=== PATIENT | female | born 1985 ===

== ENCOUNTER 2021-07-03 09:14 | Inpatient (IN) | payer OTHER ==
[2021-07-03] VITALS (29 sets, daily range): BP systolic 70–186; BP diastolic 34–140
[~2021-07-03] VITALS: Ht 152.4 cm; Wt 47.6 kg
[2021-07-03 09:59] LABS: BASE EXCESS ABG -20 mmol/L (-3-3); CORRECTED PCO2 ABG 52 mmHg; CORRECTED PH ABG 6.99; CORRECTED PO2 ABG 65 mmHg; HCO3 ABG 13 mmol/L (21-28); PO2 ABG 81 mmHg (85-108); SAT O2 ABG 91 % (92-99)
[2021-07-03] MEDS ORDERED: NOREPINEPHRINE VIAL 8 MG in IV DEXTROSE 5% 250 ML IV PRN (10:00)
[2021-07-03] MEDS ORDERED: PHENYLEPHRINE INJ 50 MG in IV NORMAL SALINE 250ML 250 ML IV PRN (10:00)
[2021-07-03] MEDS ORDERED: 0.9 % SODIUM CHLORIDE 10 ML DISP.SYRIN. IV PRN (10:00)
[2021-07-03] MEDS ORDERED: IV NORMAL SALINE 1000ML BAG 1,000 ML IV ONE (10:00)
[2021-07-03 10:02] LABS: PCO2 ABG 60 mmHg (35-46)
[2021-07-03 10:04] LABS: FIO2 ABG 100
[2021-07-03] MEDS ORDERED: SODIUM BICARB ADULT 8.4% 50 MEQ/50 ML DISP.SYRIN. IV ONE ×2 (11:00→12:30)
[2021-07-03 11:04] LABS: BASO % 0 % (0-3); EOS % 0 % (0-3); HEMATOCRIT 45.2 % (36.0-47.0); HEMOGLOBIN 15.1 g/dL (12.0-15.5); LYMPH % 5 % (24-48); MEAN CORPUSCULAR HEMOGLOBIN 31 pg (25-35); MEAN CORPUSCULAR HGB CONC 33 g/dL (31-37); MEAN CORPUSCULAR VOLUME 94 fL (79-100); MONO # 0.2 x10^3/uL (0.0-1.1); MONO % 1 % (0-9); NEUT # 20.3 x10^3/uL (1.8-7.7); NEUT % 94 % (31-73); PLATELET COUNT 355 x10^3/uL (140-400); RED BLOOD COUNT 4.81 x10^6/uL (3.50-5.40); RED CELL DISTRIBUTION WIDTH 12.6 % (11.5-14.5); WHITE BLOOD COUNT 21.6 x10^3/uL (4.0-11.0)
[2021-07-03] MEDS: IV NORMAL SALINE 1000ML BAG 1,000 ML IV SCH ×2 (11:15→13:15)
[2021-07-03 11:17] LABS: PROTHROMBIN TIME PATIENT 16.9 SEC (11.7-14.0)
[2021-07-03 11:36] LABS: ALBUMIN 2.5 g/dL (3.4-5.0); ALBUMIN/GLOBULIN RATIO 0.8 (1.0-1.7); CALCIUM 6.7 mg/dL (8.5-10.1); CREATININE 0.7 mg/dL (0.6-1.0); GFR 94.7; POTASSIUM 3.5 mmol/L (3.5-5.1); TOTAL BILIRUBIN 0.2 mg/dL (0.2-1.0); TOTAL PROTEIN 5.6 g/dL (6.4-8.2)
--- NOTE | 2021-07-03 11:42 | CONS ---
DATE OF CONSULTATION: 07/03/2021 PULMONARY CONSULTATION ATTENDING PHYSICIAN: Bean Luna MD REASON FOR CONSULTATION: Respiratory failure and anoxic brain injury. HISTORY OF PRESENT ILLNESS: The patient is a 35-year-old female who has history of depression and has suicidal attempt in the past. The patient was found hanging in the closet at 4:00 in the morning. The patient's son called dad after he noticed her in the closet. Last seen was around 2:00 a.m. and this incident was observed at 4:00 a.m. EMS was called. The patient had 3 rounds of CPR. She had return of spontaneous circulation. She was taken to [facility] Emergency Room where a CT head was performed, which revealed evidence of anoxic brain injury. She also underwent CT chest, which was reviewed by me. There is evidence of mucus plugging and atelectasis involving the lower lobe, especially the right lower lobe. Angiogram of the neck did not reveal any dissection or stenosis. Her arterial blood gases on arrival showed a pH of 6.9, pCO2 of 60, pO2 of 81 on 100% oxygen and bicarbonate of 13. The patient has fixed and dilated pupils. She barely had 1 or 2 breaths above the set ventilator rate. She does not have a gag reflex. Her and brother is at the bedside. PAST MEDICAL HISTORY: Significant for hypertension and prior history of suicidal attempt. PAST SURGICAL HISTORY: . ALLERGIES: None to any medications. MEDICATIONS: Reviewed as listed in the MRAD including bicarbonate. REVIEW OF SYSTEMS: Unable to obtain from the patient. PHYSICAL EXAMINATION: VITAL SIGNS: Reviewed. Pulse ox is 100%. She was hypothermic on arrival with a core temperature of 91. Now, she is 96. She is on warming blanket. LUNGS: Clear. CARDIOVASCULAR: With a regular rate. ABDOMEN: Soft, nontender. EXTREMITIES: With no pitting edema. LABORATORY DATA: Reviewed. ABG discussed in my history of present illness. White cell count 21.6, hemoglobin 15.1, platelets 355. IMPRESSION: 1. Acute respiratory failure secondary to hanging with hypoxic respiratory arrest leading to cardiac arrest. 2. Anoxic encephalopathy with highly suspected early brain . She does not have a gag reflex. She does not have a corneal reflex. Her pupils are fixed and dilated. She did had few breaths above the set ventilator rate. She needs to be rewarmed and re assess in 24 hrs for brain . 3. Abnormal CT brain consistent with anoxic brain injury. 4. Prior history of suicide. 5. Underlying depression. 6. Leukocytosis. 7. Abnormal CT chest with mucus plugging in the right lower lobe. 8. Metabolic acidosis. RECOMMENDATIONS: 1. Continue present assist control mode. Follow ABGs and make necessary adjustments. I have hyperventilated her and waiting for another followup ABGs. 2. We will continue to warm the patient and once she reaches a core temperature of 97 degrees Fahrenheit, we will do an apnea test in the next 24 hours if clinically shows signs of brain . 3. Follow Neurology recommendations. 4. Add empiric antibiotics. 5. Monitor white cell count. 6. Wean off Levophed. She has responded to IV fluids. We will give another liter of fluid. 7. Discussed with entire family at the bedside. Discussed with RN and RT. Chart reviewed, imaging studies reviewed. Total critical care time [address]: Kalyan TID: [id number] [facility]OSPITALAlvin
[2021-07-03 12:02] LABS: BASE EXCESS ABG -11 mmol/L (-3-3); HCO3 ABG 18 mmol/L (21-28); PCO2 ABG 50 mmHg (35-46); PO2 ABG 59 mmHg (85-108); SAT O2 ABG 88 % (92-99)
[2021-07-03] MEDS: cefTRIAXone IV Push 1 GM VIAL. IVP SCH (12:28)
[2021-07-03 12:40] LABS: % BANDS 21 % (0-9); % LYMPHS 5 % (24-48); % METAS 3 % (0-0); % MONOS 1 % (0-10); % SEGS 70 % (35-66)
[2021-07-03 12:41] LABS: PLT ESTIMATE ADEQUATE (ADEQUATE)
[2021-07-03 13:06] LABS: FIO2 ABG 100% AC 26 400 5
--- NOTE | 2021-07-03 13:13 | PDOC2 ---
NEUROLOGY CONSULT Date of Service DOS: DATE: 07/03/21 TIME: 13:07 Reason for Consult Reason for Consult: Post code Referring Physician Referring Physician: Dr. Gomez Source Source: Caregiver (), Chart review History of Present Illness History of Present Illness The patient is a 35-year-old right-handed female who presented to the [facility] emergency department early this morning. Her 5-year-old son found her hanging in the closet. There is a telephone card wrapped around her throat. No one knows how long she was there. ran in and got her down, started CPR, and called 911. Emergency medical services started ACLS because she was pulseless and apneic. She was intubated, given epinephrine. She had imaging of the head and cervical spine. I reviewed [facility] emergency department records from 07/01. Patient reported, ".. I was upset yesterday.. maybe drank too much.. I feeling a little off today... dizzy...My father is sick and he was sent back to the [facility]... and it has really upset me.. '" She denied suicidality then. Patient has had a previous suicide attempt. Past Medical History Psych: Depression Past Surgical History Past Surgical History: No pertinent history Family History Family History: No pertinent hx Social History Social History , works at [employer], 5 children, no alcohol or street drugs, occasionally chews tobacco Current Medications Current Medications Current Medications Norepinephrine Bitartrate 8 mg/ Dextrose 258 ml @ 8.727 mls/ hr CONT PRN IV PER PROTOCOL; Start 07/03/21 at 10:00 Phenylephrine HCl 50 mg/Sodium Chloride 255 ml @ 6.9 mls/hr CONT PRN IV PER PROTOCOL; Start 07/03/21 at 10:00 Sodium Chloride 1,000 ml @ 1,000 mls/hr 1X ONCE IV ; Start 07/03/21 at 10:00; Stop 07/03/21 at 10:59; Status DC Sodium Chloride (Normal Saline Flush) 3 ml QSHIFT PRN IV AFTER MEDS AND BLOOD DRAWS; Start 07/03/21 at 10:00 Sodium Bicarbonate (Sodium Bicarb Adult 8.4% Syr) 100 meq 1X ONCE IV Last administered on 07/03/21at 11:03; Start 07/03/21 at 11:00; Stop 07/03/21 at 11:01; Status DC Sodium Chloride 1,000 ml @ 500 mls/hr Q2H IV Last administered on 07/03/21at 11:15; Start 07/03/21 at 11:15 Ceftriaxone Sodium (Rocephin) 1 gm Q24H IVP Last administered on 07/03/21at 12:28; Start 07/03/21 at 12:00 Sodium Bicarbonate (Sodium Bicarb Adult 8.4% Syr) 100 meq 1X ONCE IV Last administered on 07/03/21at 12:27; Start 07/03/21 at 12:30; Stop 07/03/21 at 12:31; Status DC Allergies Allergies: Coded Allergies: banana (Verified Allergy, Intermediate, 07/03/21) ROS Review of System Negative for fever, chills, weight loss, shortness of breath, chest pain, indigestion, hematochezia, melena, and dysuria. Full 14-point review of systems is negative. Physical Exam Physical Examination General: Well-developed, well-nourished female in no acute distress HEENT:Fundoscopic exam unremarkable Neck: Supple without bruit, no meningismus Musculoskeletal: Stability:see neurologic. Gait exam:see neurologic. Tone:see neurologic.Strength:see neurologic. Neurological: Pupils nonreactive to bright light. Corneal reflex absent. Oculocephalic reflex absent (tested only if C-spineintegrity ensured). Oculovestibular reflex absent. No facial movement to noxious stimuli at supraorbital nerve, temporomandibular joint. Gag reflex absent. Cough reflex absent to tracheal suctioning. Absence of motor response to noxious stimuli in all four limbs (spinally mediated reflexes are permissible). Takes a few breaths off ventilator Vitals VITALS Vital Signs Date Time Temp Pulse Resp B/P (MAP) Pulse Ox O2 Delivery O2 Flow Rate FiO2 07/03/21 12:56 94.1 124 20 70/57 88 Ventilator 94.1 Labs Labs Laboratory Tests Test 07/03/21 09:52 07/03/21 10:30 O2 Saturation 91 % (92-99) Arterial Blood pH 6.95 (7.35-7.45) Arterial Blood pH (Temp corrected) 6.99 Arterial Blood pCO2 at Patient Temp 60 mmHg (35-46) Arterial Blood pCO2 (Temp correct) 52 mmHg Arterial Blood pO2 at Patient Temp 81 mmHg (85-108) Arterial Blood pO2 (Temp corrected) 65 mmHg Arterial Blood HCO3 13 mmol/L (21-28) Arterial Blood Base Excess -20 mmol/L (-3-3) FiO2 100 White Blood Count 21.6 x10^3/uL (4.0-11.0) Red Blood Count 4.81 x10^6/uL (3.50-5.40) Hemoglobin 15.1 g/dL (12.0-15.5) Hematocrit 45.2 % (36.0-47.0) Mean Corpuscular Volume 94 fL (79-100) Mean Corpuscular Hemoglobin 31 pg (25-35) Mean Corpuscular Hemoglobin Concent 33 g/dL (31-37) Red Cell Distribution Width 12.6 % (11.5-14.5) Platelet Count 355 x10^3/uL (140-400) Neutrophils (%) (Auto) 94 % (31-73) Lymphocytes (%) (Auto) 5 % (24-48) Monocytes (%) (Auto) 1 % (0-9) Eosinophils (%) (Auto) 0 % (0-3) Basophils (%) (Auto) 0 % (0-3) Neutrophils # (Auto) 20.3 x10^3/uL (1.8-7.7) Lymphocytes # (Auto) 1.0 x10^3/uL (1.0-4.8) Monocytes # (Auto) 0.2 x10^3/uL (0.0-1.1) Eosinophils # (Auto) 0.0 x10^3/uL (0.0-0.7) Basophils # (Auto) 0.0 x10^3/uL (0.0-0.2) Segmented Neutrophils % 70 % (35-66) Band Neutrophils % 21 % (0-9) Lymphocytes % 5 % (24-48) Monocytes % 1 % (0-10) Metamyelocytes % 3 % (0-0) Platelet Estimate Adequate (ADEQUATE) Prothrombin Time 16.9 SEC (11.7-14.0) Prothromb Time International Ratio 1.4 (0.8-1.1) Activated Partial Thromboplast Time 33 SEC (24-38) Sodium Level 148 mmol/L (136-145) Potassium Level 3.5 mmol/L (3.5-5.1) Chloride Level 109 mmol/L (98-107) Carbon Dioxide Level 22 mmol/L (21-32) Anion Gap 17 (6-14) Blood Urea Nitrogen 9 mg/dL (7-20) Creatinine 0.7 mg/dL (0.6-1.0) Estimated GFR (Cockcroft-Gault) 94.7 BUN/Creatinine Ratio 13 (6-20) Glucose Level 65 mg/dL (70-99) Lactic Acid Level 6.1 mmol/L (0.4-2.0) Calcium Level 6.7 mg/dL (8.5-10.1) Total Bilirubin 0.2 mg/dL (0.2-1.0) Aspartate Amino Transf (AST/SGOT) 504 U/L (15-37) Alanine Aminotransferase (ALT/SGPT) 217 U/L (14-59) Alkaline Phosphatase 193 U/L (46-116) Total Protein 5.6 g/dL (6.4-8.2) Albumin 2.5 g/dL (3.4-5.0) Albumin/Globulin Ratio 0.8 (1.0-1.7) Laboratory Tests Test 07/03/21 09:52 07/03/21 10:30 O2 Saturation 91 % (92-99) Arterial Blood pH 6.95 (7.35-7.45) Arterial Blood pH (Temp corrected) 6.99 Arterial Blood pCO2 at Patient Temp 60 mmHg (35-46) Arterial Blood pCO2 (Temp correct) 52 mmHg Arterial Blood pO2 at Patient Temp 81 mmHg (85-108) Arterial Blood pO2 (Temp corrected) 65 mmHg Arterial Blood HCO3 13 mmol/L (21-28) Arterial Blood Base Excess -20 mmol/L (-3-3) FiO2 100 White Blood Count 21.6 x10^3/uL (4.0-11.0) Red Blood Count 4.81 x10^6/uL (3.50-5.40) Hemoglobin 15.1 g/dL (12.0-15.5) Hematocrit 45.2 % (36.0-47.0) Mean Corpuscular Volume 94 fL (79-100) Mean Corpuscular Hemoglobin 31 pg (25-35) Mean Corpuscular Hemoglobin Concent 33 g/dL (31-37) Red Cell Distribution Width 12.6 % (11.5-14.5) Platelet Count 355 x10^3/uL (140-400) Neutrophils (%) (Auto) 94 % (31-73) Lymphocytes (%) (Auto) 5 % (24-48) Monocytes (%) (Auto) 1 % (0-9) Eosinophils (%) (Auto) 0 % (0-3) Basophils (%) (Auto) 0 % (0-3) Neutrophils # (Auto) 20.3 x10^3/uL (1.8-7.7) Lymphocytes # (Auto) 1.0 x10^3/uL (1.0-4.8) Monocytes # (Auto) 0.2 x10^3/uL (0.0-1.1) Eosinophils # (Auto) 0.0 x10^3/uL (0.0-0.7) Basophils # (Auto) 0.0 x10^3/uL (0.0-0.2) Segmented Neutrophils % 70 % (35-66) Band Neutrophils % 21 % (0-9) Lymphocytes % 5 % (24-48) Monocytes % 1 % (0-10) Metamyelocytes % 3 % (0-0) Platelet Estimate Adequate (ADEQUATE) Prothrombin Time 16.9 SEC (11.7-14.0) Prothromb Time International Ratio 1.4 (0.8-1.1) Activated Partial Thromboplast Time 33 SEC (24-38) Sodium Level 148 mmol/L (136-145) Potassium Level 3.5 mmol/L (3.5-5.1) Chloride Level 109 mmol/L (98-107) Carbon Dioxide Level 22 mmol/L (21-32) Anion Gap 17 (6-14) Blood Urea Nitrogen 9 mg/dL (7-20) Creatinine 0.7 mg/dL (0.6-1.0) Estimated GFR (Cockcroft-Gault) 94.7 BUN/Creatinine Ratio 13 (6-20) Glucose Level 65 mg/dL (70-99) Lactic Acid Level 6.1 mmol/L (0.4-2.0) Calcium Level 6.7 mg/dL (8.5-10.1) Total Bilirubin 0.2 mg/dL (0.2-1.0) Aspartate Amino Transf (AST/SGOT) 504 U/L (15-37) Alanine Aminotransferase (ALT/SGPT) 217 U/L (14-59) Alkaline Phosphatase 193 U/L (46-116) Total Protein 5.6 g/dL (6.4-8.2) Albumin 2.5 g/dL (3.4-5.0) Albumin/Globulin Ratio 0.8 (1.0-1.7) Images Images CTA HEAD AND NECK W/WO CONTRAST DATE: 07/03/2021 7:21 AM INDICATION: strangulation TECHNIQUE: CTA angiogram of the head and neck was obtained after administration of intravenous contrast. The images were sent to workstation and multiplanar reconstructions were obtained. Multiplanar reconstruction images to include MIP and 3-D reconstruction images are submitted. One or more of the following dose reduction techniques were utilized: Automated exposure control (AEC), Adjustment of mA and/or kV according to patient size, Use of iterative reconstruction technique such as ASiR, CT scan done according to ALARA and image gently/image wisely COMPARISON: Concurrent CT head and C-spine. FINDINGS: CTA Neck: Right carotid: The right common carotid artery is patent and normal caliber. The carotid bifurcation is normal. No stenosis of the right internal carotid artery per NASCET criteria. The right external carotid artery is patent. Left carotid: The left common carotid artery is patent and normal caliber. The carotid bifurcation is normal. No stenosis of the left internal carotid artery per NASCET criteria. The left external carotid artery is patent. Right vertebral: The right vertebral artery is patent and normal caliber. Left vertebral: The left vertebral artery is patent and normal caliber. The visualized portions of the aortic arch are normal. The origins of the brachiocephalic and subclavian arteries are normal. Please see concurrent CT head report and CT C-spine report for evaluation of non-vascular structures. IMPRESSION: 1. No aneurysm. No intracranial stenosis or occlusion. 2. No dissection or stenosis of the cervical carotid or vertebral arteries. CT scan of the head without contrast 07/03/2021 Clinical History: Strangulation. Technique: Unenhanced, contiguous, 5 mm axial sections were obtained through the head. One or more of the following individualized dose reduction techniques were utilized for this study: 1. Automated exposure control. 2. Adjustment of the mA and/or kV according to patient size. 3. Use of iterative reconstruction technique. Findings: The ventricles are small and slitlike. The sulci surrounding the brain . The largely effaced. There is loss of rodriguez-white matter differentiation. These findings could reflect hypoxic injury. There is no CT evidence of intracranial hemorrhage. No extra-axial fluid collection is seen. No skull fracture is noted. Mild mucosal thickening in seen scattered throughout the ethmoid air cells bilaterally. IMPRESSION: Findings are seen suggesting hypoxic brain injury as discussed above . CT scan of the cervical spine without contrast 07/03/2021 Clinical history: Strangulation. Technique: Unenhanced, contiguous, 0.625 mm axial sections were obtained through the cervical spine. 2 mm reconstructed axial and 2 mm coronal and sagittal rec onstructed images were obtained. One or more of the following individualized dose reduction techniques were utilized for this study: 1. Automated exposure control. 2. Adjustment of the mA and/or kV according to patient size. 3. Use of iterative reconstruction technique. Findings: Sagittal and coronal reconstructed images demonstrate ET and NG tubes noted in place. The NG tube is coiled within the oropharynx and hypopharynx. The more distal end of the tube extends into the esophagus. There is slight reversal of the normal cervical lordosis. No fracture or subluxation of the cervical vertebrae is seen. No significant degenerative changes are noted. Atelectasis is seen involving the visualized right upper lobe. Impression: No fracture or subluxation of the cervical vertebra is identified. Assessment/Plan Assessment/Plan Impression: Anoxic encephalopathy, post code, hanging, has a respiratory reflex but no other reflexes, pupils are fixed and dilated. She is still hypothermic. She is not a candidate for hypothermia protocol. Recommendations: Supportive care Rewarm No need for apnea test now given the positive respiratory movements when I briefly disconnected the ventilator. I discussed with patient's . Thank you for letting me help with the patient's care. RODNEY CORONA MD Jul 03, 2021 13:13
--- NOTE | 2021-07-03 14:07 | RAD ---
XR CHEST 1V History: Reason: PORT. CENTRAL LINE PLACEMENT Comparison: July 03, 2021 radiograph Findings: Interval placement right IJ central line with tip overlying the right atrium. Increased multifocal pu lmonary consolidations, right greater than left. No pleural effusion. No pneumothorax. Normal heart s ize. Enteric tube with tip overlying the proximal stomach and side port within the distal esophagus. Impression: 1. Interval placement right IJ central line. No pneumothorax. 2. Increased multifocal pulmonary consolidations, right greater than left. 3. Interval placement enteric tube with tip overlying the proximal stomach and side port within the distal esophagus. Recommend advancement. Electronically signed by: Rodger Ramírez DO (07/03/2021 2:04 PM) [id number]
--- NOTE | 2021-07-03 14:12 | RAD ---
07/03/2021 2:10 PM Procedure: Ultrasound-guided placement of a right internal jugular triple-lumen central venous cathet er Indication: Patient critically ill. Multiple IV infusions. Emergent central venous access requested b y the ICU. Consent: The procedure was explained in its entirety to the patient or the patients designated repres entative by a member of the treatment team, including a discussion of the risks, benefits and commonl y accepted alternatives to the procedure, as well as the expected consequences of no therapy whatsoev er. Discussion of the risks included, but was not limited to, those that are most frequent and thos e that are rare but possibly severe or life-threatening, as well as the possibility of unforeseen com plications. Sterility: The patient was prepped and draped using maximum sterile technique, including the use of: Current guideline approved cutaneous antisepsis, a large sterile sheet to establish a sterile field. Additionally the stretcher leveler operator wore a hat, mask, sterile gloves, a sterile gown during the procedure as we ll as practiced acceptable hand hygiene prior to placing the line. Lidocaine was used for local anest hesia. Technique and Findings: High micropuncture needle was then used to gain access to the right internal jugular vein ultrasound guidance. A hard copy ultrasound image was recorded. A guidewire was advance d centrally over which, following dilatation, a triple-lumen central venous catheter was placed. The new catheter was found to flush and aspirate normally. The catheter was secured in place. Sterile dr essings were applied. No immediate complications were identified. IMPRESSION: Ultrasound-guided placement of right internal jugular triple-lumen central venous cathete r Electronically signed by: Easton Azul MD (07/03/2021 2:10 PM) [id number]
--- NOTE | 2021-07-03 16:01 | HP ---
DATE OF SERVICE: 07/03/2021 ADMIT DATE: 07/03/2021 HISTORY OF PRESENT ILLNESS: The patient is a 35-year-old -[place] female patient who presented from home after hanging herself in her closet with a telephone cord. Her and family her last known well was 2:00 a.m. Her son found her at around 4:00 a.m. hanging in the closet with a telephone cord, wrapped around her throat. States they do not know how long she was hanging in there. states that he got her down and started CPR around and called 911. EMS started en route, blood sugar was normal, started ECLS as she was not breathing and had no pulse, gave 1 epinephrine and intubated with LMA. Initial evaluation showed that the patient was Maria Guadalupe coma scale of 3 and was intubated. By the time she arrived to the Emergency Room, she was intubated with a 7.5 endotracheal tube without anesthesia or paralytic agent. The patient was hypotensive and mean arterial pressure in the low 60s before intubation and was given peripheral phenylephrine to increase blood pressure. After intubation, patient required another dose of phenylephrine as she was still hypotensive, and started on Levophed, also started on IV fluid resuscitation with lactated Ringer's. The patient eventually was transferred to [facility] ICU, continued on Levophed and IV fluid to maintain her blood pressure. LABORATORY DATA: Her lab work showed a white cell count 20,900, hemoglobin 12, hematocrit 38, MCV 101 and platelet count 292 with normal manual differential. Her serum sodium was 137, potassium 3.5, chloride 104, bicarbonate 12, anion gap of 21, BUN 6, creatinine 0.8. Estimated GFR was 81 mL per minute. Her blood glucose was 294. Lactic acid was 13, calcium was 7.8, magnesium was 2.7. Total bilirubin, alkaline phosphatase are normal. AST, ALT was elevated. Troponin I high sensitivity was 23, total protein was 5.7, albumin was 2.7. Her prothrombin time, INR and APTT are normal. Has had a CT scan of the head and cervical spine, which basically showed the ventricles are small and a slit-like surrounding the brain are largely effaced and there is loss of rodriguez-white matter differentiation these finding could reflect hypoxic injury. There is no CT evidence of intracranial hemorrhage, no extraaxial fluid collection is seen. No skull fracture is noted. Mild mucosal thickening is seen scattered throughout the ethmoid air cells bilaterally. CT of the cervical spine showed sagittal and coronal reconstructed images demonstrate . The NG tube in place. No NG tube is coiled within the oropharynx and hypopharynx. The more distal end of the tube extends into the esophagus. There is slight reversal of the normal cervical lordosis. No fracture or subluxation of the cervical vertebrae seen. No significant degenerative changes are noted. There is also some atelectasis seen involving the visualized right upper lobe. CT angio of the head and neck showed no aneurysm or intracranial stenosis or occlusion or dissection, stenosis of the cervical, carotid or vertebral arteries. CT scan of the chest, abdomen and pelvis showed dependent atelectasis and/or infiltrate is seen involving both lungs, right greater than left. No acute abnormality is seen involving the abdomen or pelvis. PHYSICAL EXAMINATION: GENERAL: On examining her, she was a well-developed, well-nourished. VITAL SIGNS: Her heart rate was 130, blood pressure was 85/64, temperature was 91.8, respiratory rate was 18 and oxygen saturation was 97% initially on 15 liters by nonrebreather mask. HEAD, EYES, EARS, NOSE, AND THROAT: Normocephalic, atraumatic. NECK: Showed no obvious bruising around the neck and no crepitus. Patient was easily intubated. HEART: Normal first and second heart sounds. No gallop, rub or murmur. CHEST: Shows central trachea, equal bilateral expansion, air entry, vesicular crepitation or rhonchi. ABDOMEN: was . NEUROLOGICAL: She was a Maria Guadalupe coma scale. ASSESSMENT AND PLAN: The patient will be transferred with diagnosis of cardiac arrest, asphyxia by strangulation suicide, self-inflicted injury. Obviously, I have consulted the brake repairer hydraulic as well as neurologist. She was continued on Levophed and also on mechanical ventilation and order some more IV fluid. [facility] [place]: Davis TID: [id number]
[2021-07-03] MEDS ORDERED: IV NORMAL SALINE 1000ML BAG 1,000 ML IV PRN (17:45)
--- NOTE | 2021-07-03 18:00 | NUR ---
EOSS patient remains unresponsive,no gag no pupil response,no response to pain-family at bedside. VS very laybile levo at 0.5 mcg/kg/min at times rapid titration needed, jami at 2.5 mcg/kg/min, fluid bolus given total 3L to attempt to keep MAP > 92 %
[2021-07-04] VITALS (15 sets, daily range): BP systolic 83–116; BP diastolic 68–102
[2021-07-04 05:54] LABS: BASO # 0.1 x10^3/uL (0.0-0.2); BASO % 1 % (0-3); EOS % 0 % (0-3); HEMATOCRIT 46.8 % (36.0-47.0); HEMOGLOBIN 15.9 g/dL (12.0-15.5); LYMPH # 2.1 x10^3/uL (1.0-4.8); LYMPH % 7 % (24-48); MEAN CORPUSCULAR HEMOGLOBIN 31 pg (25-35); MEAN CORPUSCULAR HGB CONC 34 g/dL (31-37); MEAN CORPUSCULAR VOLUME 92 fL (79-100); MONO # 0.6 x10^3/uL (0.0-1.1); MONO % 2 % (0-9); NEUT # 26.1 x10^3/uL (1.8-7.7); NEUT % 90 % (31-73); PLATELET COUNT 201 x10^3/uL (140-400); RED BLOOD COUNT 5.07 x10^6/uL (3.50-5.40); RED CELL DISTRIBUTION WIDTH 12.8 % (11.5-14.5)
[2021-07-04 06:20] LABS: ALBUMIN 2.4 g/dL (3.4-5.0); ALBUMIN/GLOBULIN RATIO 0.6 (1.0-1.7); CALCIUM 6.7 mg/dL (8.5-10.1); CREATININE 1.4 mg/dL (0.6-1.0); GFR 42.5; POTASSIUM 3.7 mmol/L (3.5-5.1); TOTAL BILIRUBIN 0.2 mg/dL (0.2-1.0); TOTAL PROTEIN 6.3 g/dL (6.4-8.2)
[2021-07-04 08:18] LABS: BASE EXCESS ABG -5 mmol/L (-3-3); HCO3 ABG 18 mmol/L (21-28); PCO2 ABG 27 mmHg (35-46); PO2 ABG 410 mmHg (85-108); SAT O2 ABG 100 % (92-99)
--- NOTE | 2021-07-04 09:27 | PDOC ---
PULMONARY PROGRESS NOTES DATE: 07/04/21 TIME: 09:24 Subjective Patient remains on assist control mode. This morning does not trigger the ventilator. Vitals Vital Signs Date Time Temp Pulse Resp B/P (MAP) Pulse Ox O2 Delivery O2 Flow Rate FiO2 07/04/21 09:00 13 16 96/68 100 Ventilator 07/04/21 08:00 97.5 97.5 General: No acute distress Lungs: Clear Cardiovascular: S1 Abdomen: Soft Extremities: No Edema Skin: Warm Labs Laboratory Tests Test 07/03/21 09:52 07/03/21 10:30 07/03/21 12:00 07/03/21 14:15 O2 Saturation 91 % (92-99) 88 % (92-99) Arterial Blood pH 6.95 (7.35-7.45) 7.16 (7.35-7.45) Arterial Blood pH (Temp corrected) 6.99 Arterial Blood pCO2 at Patient Temp 60 mmHg (35-46) 50 mmHg (35-46) Arterial Blood pCO2 (Temp correct) 52 mmHg Arterial Blood pO2 at Patient Temp 81 mmHg (85-108) 59 mmHg (85-108) Arterial Blood pO2 (Temp corrected) 65 mmHg Arterial Blood HCO3 13 mmol/L (21-28) 18 mmol/L (21-28) Arterial Blood Base Excess -20 mmol/L (-3-3) -11 mmol/L (-3-3) FiO2 100 100% ac 26 400 5 White Blood Count 21.6 x10^3/uL (4.0-11.0) Red Blood Count 4.81 x10^6/uL (3.50-5.40) Hemoglobin 15.1 g/dL (12.0-15.5) Hematocrit 45.2 % (36.0-47.0) Mean Corpuscular Volume 94 fL (79-100) Mean Corpuscular Hemoglobin 31 pg (25-35) Mean Corpuscular Hemoglobin Concent 33 g/dL (31-37) Red Cell Distribution Width 12.6 % (11.5-14.5) Platelet Count 355 x10^3/uL (140-400) Neutrophils (%) (Auto) 94 % (31-73) Lymphocytes (%) (Auto) 5 % (24-48) Monocytes (%) (Auto) 1 % (0-9) Eosinophils (%) (Auto) 0 % (0-3) Basophils (%) (Auto) 0 % (0-3) Neutrophils # (Auto) 20.3 x10^3/uL (1.8-7.7) Lymphocytes # (Auto) 1.0 x10^3/uL (1.0-4.8) Monocytes # (Auto) 0.2 x10^3/uL (0.0-1.1) Eosinophils # (Auto) 0.0 x10^3/uL (0.0-0.7) Basophils # (Auto) 0.0 x10^3/uL (0.0-0.2) Segmented Neutrophils % 70 % (35-66) Band Neutrophils % 21 % (0-9) Lymphocytes % 5 % (24-48) Monocytes % 1 % (0-10) Metamyelocytes % 3 % (0-0) Platelet Estimate Adequate (ADEQUATE) Prothrombin Time 16.9 SEC (11.7-14.0) Prothromb Time International Ratio 1.4 (0.8-1.1) Activated Partial Thromboplast Time 33 SEC (24-38) Sodium Level 148 mmol/L (136-145) Potassium Level 3.5 mmol/L (3.5-5.1) Chloride Level 109 mmol/L (98-107) Carbon Dioxide Level 22 mmol/L (21-32) Anion Gap 17 (6-14) Blood Urea Nitrogen 9 mg/dL (7-20) Creatinine 0.7 mg/dL (0.6-1.0) Estimated GFR (Cockcroft-Gault) 94.7 BUN/Creatinine Ratio 13 (6-20) Glucose Level 65 mg/dL (70-99) Lactic Acid Level 6.1 mmol/L (0.4-2.0) 3.7 mmol/L (0.4-2.0) Calcium Level 6.7 mg/dL (8.5-10.1) Total Bilirubin 0.2 mg/dL (0.2-1.0) Aspartate Amino Transf (AST/SGOT) 504 U/L (15-37) Alanine Aminotransferase (ALT/SGPT) 217 U/L (14-59) Alkaline Phosphatase 193 U/L (46-116) Total Protein 5.6 g/dL (6.4-8.2) Albumin 2.5 g/dL (3.4-5.0) Albumin/Globulin Ratio 0.8 (1.0-1.7) Test 07/04/21 05:30 White Blood Count 29.0 x10^3/uL (4.0-11.0) Red Blood Count 5.07 x10^6/uL (3.50-5.40) Hemoglobin 15.9 g/dL (12.0-15.5) Hematocrit 46.8 % (36.0-47.0) Mean Corpuscular Volume 92 fL (79-100) Mean Corpuscular Hemoglobin 31 pg (25-35) Mean Corpuscular Hemoglobin Concent 34 g/dL (31-37) Red Cell Distribution Width 12.8 % (11.5-14.5) Platelet Count 201 x10^3/uL (140-400) Neutrophils (%) (Auto) 90 % (31-73) Lymphocytes (%) (Auto) 7 % (24-48) Monocytes (%) (Auto) 2 % (0-9) Eosinophils (%) (Auto) 0 % (0-3) Basophils (%) (Auto) 1 % (0-3) Neutrophils # (Auto) 26.1 x10^3/uL (1.8-7.7) Lymphocytes # (Auto) 2.1 x10^3/uL (1.0-4.8) Monocytes # (Auto) 0.6 x10^3/uL (0.0-1.1) Eosinophils # (Auto) 0.0 x10^3/uL (0.0-0.7) Basophils # (Auto) 0.1 x10^3/uL (0.0-0.2) Sodium Level 153 mmol/L (136-145) Potassium Level 3.7 mmol/L (3.5-5.1) Chloride Level 118 mmol/L (98-107) Carbon Dioxide Level 20 mmol/L (21-32) Anion Gap 15 (6-14) Blood Urea Nitrogen 16 mg/dL (7-20) Creatinine 1.4 mg/dL (0.6-1.0) Estimated GFR (Cockcroft-Gault) 42.5 BUN/Creatinine Ratio 11 (6-20) Glucose Level 170 mg/dL (70-99) Calcium Level 6.7 mg/dL (8.5-10.1) Total Bilirubin 0.2 mg/dL (0.2-1.0) Aspartate Amino Transf (AST/SGOT) 248 U/L (15-37) Alanine Aminotransferase (ALT/SGPT) 191 U/L (14-59) Alkaline Phosphatase 91 U/L (46-116) Total Protein 6.3 g/dL (6.4-8.2) Albumin 2.4 g/dL (3.4-5.0) Albumin/Globulin Ratio 0.6 (1.0-1.7) Laboratory Tests Test 07/03/21 09:52 07/03/21 10:30 07/03/21 12:00 07/03/21 14:15 O2 Saturation 91 % (92-99) 88 % (92-99) Arterial Blood pH 6.95 (7.35-7.45) 7.16 (7.35-7.45) Arterial Blood pH (Temp corrected) 6.99 Arterial Blood pCO2 at Patient Temp 60 mmHg (35-46) 50 mmHg (35-46) Arterial Blood pCO2 (Temp correct) 52 mmHg Arterial Blood pO2 at Patient Temp 81 mmHg (85-108) 59 mmHg (85-108) Arterial Blood pO2 (Temp corrected) 65 mmHg Arterial Blood HCO3 13 mmol/L (21-28) 18 mmol/L (21-28) Arterial Blood Base Excess -20 mmol/L (-3-3) -11 mmol/L (-3-3) FiO2 100 100% ac 26 400 5 White Blood Count 21.6 x10^3/uL (4.0-11.0) Red Blood Count 4.81 x10^6/uL (3.50-5.40) Hemoglobin 15.1 g/dL (12.0-15.5) Hematocrit 45.2 % (36.0-47.0) Mean Corpuscular Volume 94 fL (79-100) Mean Corpuscular Hemoglobin 31 pg (25-35) Mean Corpuscular Hemoglobin Concent 33 g/dL (31-37) Red Cell Distribution Width 12.6 % (11.5-14.5) Platelet Count 355 x10^3/uL (140-400) Neutrophils (%) (Auto) 94 % (31-73) Lymphocytes (%) (Auto) 5 % (24-48) Monocytes (%) (Auto) 1 % (0-9) Eosinophils (%) (Auto) 0 % (0-3) Basophils (%) (Auto) 0 % (0-3) Neutrophils # (Auto) 20.3 x10^3/uL (1.8-7.7) Lymphocytes # (Auto) 1.0 x10^3/uL (1.0-4.8) Monocytes # (Auto) 0.2 x10^3/uL (0.0-1.1) Eosinophils # (Auto) 0.0 x10^3/uL (0.0-0.7) Basophils # (Auto) 0.0 x10^3/uL (0.0-0.2) Segmented Neutrophils % 70 % (35-66) Band Neutrophils % 21 % (0-9) Lymphocytes % 5 % (24-48) Monocytes % 1 % (0-10) Metamyelocytes % 3 % (0-0) Platelet Estimate Adequate (ADEQUATE) Prothrombin Time 16.9 SEC (11.7-14.0) Prothromb Time International Ratio 1.4 (0.8-1.1) Activated Partial Thromboplast Time 33 SEC (24-38) Sodium Level 148 mmol/L (136-145) Potassium Level 3.5 mmol/L (3.5-5.1) Chloride Level 109 mmol/L (98-107) Carbon Dioxide Level 22 mmol/L (21-32) Anion Gap 17 (6-14) Blood Urea Nitrogen 9 mg/dL (7-20) Creatinine 0.7 mg/dL (0.6-1.0) Estimated GFR (Cockcroft-Gault) 94.7 BUN/Creatinine Ratio 13 (6-20) Glucose Level 65 mg/dL (70-99) Lactic Acid Level 6.1 mmol/L (0.4-2.0) 3.7 mmol/L (0.4-2.0) Calcium Level 6.7 mg/dL (8.5-10.1) Total Bilirubin 0.2 mg/dL (0.2-1.0) Aspartate Amino Transf (AST/SGOT) 504 U/L (15-37) Alanine Aminotransferase (ALT/SGPT) 217 U/L (14-59) Alkaline Phosphatase 193 U/L (46-116) Total Protein 5.6 g/dL (6.4-8.2) Albumin 2.5 g/dL (3.4-5.0) Albumin/Globulin Ratio 0.8 (1.0-1.7) Test 07/04/21 05:30 White Blood Count 29.0 x10^3/uL (4.0-11.0) Red Blood Count 5.07 x10^6/uL (3.50-5.40) Hemoglobin 15.9 g/dL (12.0-15.5) Hematocrit 46.8 % (36.0-47.0) Mean Corpuscular Volume 92 fL (79-100) Mean Corpuscular Hemoglobin 31 pg (25-35) Mean Corpuscular Hemoglobin Concent 34 g/dL (31-37) Red Cell Distribution Width 12.8 % (11.5-14.5) Platelet Count 201 x10^3/uL (140-400) Neutrophils (%) (Auto) 90 % (31-73) Lymphocytes (%) (Auto) 7 % (24-48) Monocytes (%) (Auto) 2 % (0-9) Eosinophils (%) (Auto) 0 % (0-3) Basophils (%) (Auto) 1 % (0-3) Neutrophils # (Auto) 26.1 x10^3/uL (1.8-7.7) Lymphocytes # (Auto) 2.1 x10^3/uL (1.0-4.8) Monocytes # (Auto) 0.6 x10^3/uL (0.0-1.1) Eosinophils # (Auto) 0.0 x10^3/uL (0.0-0.7) Basophils # (Auto) 0.1 x10^3/uL (0.0-0.2) Sodium Level 153 mmol/L (136-145) Potassium Level 3.7 mmol/L (3.5-5.1) Chloride Level 118 mmol/L (98-107) Carbon Dioxide Level 20 mmol/L (21-32) Anion Gap 15 (6-14) Blood Urea Nitrogen 16 mg/dL (7-20) Creatinine 1.4 mg/dL (0.6-1.0) Estimated GFR (Cockcroft-Gault) 42.5 BUN/Creatinine Ratio 11 (6-20) Glucose Level 170 mg/dL (70-99) Calcium Level 6.7 mg/dL (8.5-10.1) Total Bilirubin 0.2 mg/dL (0.2-1.0) Aspartate Amino Transf (AST/SGOT) 248 U/L (15-37) Alanine Aminotransferase (ALT/SGPT) 191 U/L (14-59) Alkaline Phosphatase 91 U/L (46-116) Total Protein 6.3 g/dL (6.4-8.2) Albumin 2.4 g/dL (3.4-5.0) Albumin/Globulin Ratio 0.6 (1.0-1.7) Impression . 1. Acute respiratory failure secondary to hanging with hypoxic respiratory arrest leading to cardiac arrest. 2. Anoxic encephalopathy with highly suspected brain . She does not have a gag reflex. She does not have a corneal reflex. Her pupils are fixed and dilated. No spontaneous breath today. 3. Abnormal CT brain consistent with anoxic brain injury. 4. Prior history of suicide. 5. Underlying depression. 6. Leukocytosis. 7. Abnormal CT chest with mucus plugging in the right lower lobe. 8. Metabolic acidosis. Plan . RECOMMENDATIONS: 1. Continue present assist control mode. I temporarily disconnected the patient from the ventilator. She did not had any spontaneous breaths for 30 seconds. We will do an apnea test today. 2. Core temperature is back to normal. 3. Follow Neurology recommendations. 4. empiric antibiotics. 5. Monitor white cell count. 6. off Levophed. 7. Discussed with entire family at the bedside. Discussed with RN and RT. patient is likely brain . We will do an apnea test today. MAGI HARRIS MD Jul 04, 2021 09:27
[2021-07-04 09:59] LABS: BASE EXCESS ABG -4 mmol/L (-3-3); HCO3 ABG 22 mmol/L (21-28); PCO2 ABG 44 mmHg (35-46); PO2 ABG 453 mmHg (85-108); SAT O2 ABG 100 % (92-99)
[2021-07-04 10:31] LABS: BASE EXCESS ABG -4 mmol/L (-3-3); HCO3 ABG 29 mmol/L (21-28); PO2 ABG 399 mmHg (85-108); SAT O2 ABG 100 % (92-99)
--- NOTE | 2021-07-04 10:54 | PDOC ---
PROGRESS NOTES Date of Service DATE: 07/04/21 TIME: 10:52 Assessment Anoxic encephalopathy, post code, hanging, has a respiratory reflex but no other reflexes, pupils are fixed and dilated. She is still hypothermic. She is not a candidate for hypothermia protocol. Plan Discussed before apnea test with With positive apnea test, I am declaring brain , 07/04/2021, 10:52 Subjective None Objective Vital Signs Date Time Temp Pulse Resp B/P (MAP) Pulse Ox O2 Delivery O2 Flow Rate FiO2 07/04/21 10:36 Ventilator 07/04/21 10:00 13 16 96/68 100 07/04/21 08:00 97.5 97.5 Intake and Output 07/04/21 07:00 Intake Total 681.24 ml Output Total 3080 ml Balance -2398.76 ml Intake IV Total 681.24 ml Output Urine Total 2480 ml Stool Total 600 ml # Bowel Movements 2 PHYSICAL EXAM Neurology Brain note Prerequisites (all must be checked) Coma, irreversible and cause known. Neuroimaging explains coma. 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 No evidence of residual paralytics (electrical stimulation if paralytics used). Absence of severe acid-base, electrolyte, endocrine abnormality. Normothermia or mild hypothermia (core temperature >36C). Systolic blood pressure =100 mm Hg. No spontaneous respirations. Examination (all must be checked) Pupils nonreactive to bright light. Corneal reflex absent. Oculocephalic reflex absent (tested only if C-spineintegrity ensured). Oculovestibular reflex absent. No facial movement to noxious stimuli at supraorbital nerve, temporomandibular joint. Gag reflex absent. Cough reflex absent to tracheal suctioning. Absence of motor response to noxious stimuli in all four limbs (spinally mediated reflexes are permissible). Apnea testing (all must be checked) Patient is hemodynamically stable. Ventilator adjusted to provide normocarbia (PaCO2 3545 mm Hg). Patient preoxygenated with 100% FiO2 for >10 minutes to PaO2 >200 mm Hg. Patient well-oxygenated with a positive end-expiratory pressure (PEEP) of 5 cm of water. Provide oxygen via a suction catheter to the level of the nav at 6 L/min or attach T-piece with continuous positive airway pressure (CPAP) at 10 cm H2O. Disconnect ventilator. Spontaneous respirations absent. Arterial blood gas drawn at 810 minutes, patient reconnected to ventilator. PCO2 =60 mm Hg, or 20 mm Hg rise from normal baseline value. Review of Relevant I have reviewed the following items isrrael (where applicable) has been applied. Labs Laboratory Tests Test 07/03/21 09:52 07/03/21 10:30 07/03/21 12:00 07/03/21 14:15 O2 Saturation 91 % (92-99) 88 % (92-99) Arterial Blood pH 6.95 (7.35-7.45) 7.16 (7.35-7.45) Arterial Blood pH (Temp corrected) 6.99 Arterial Blood pCO2 at Patient Temp 60 mmHg (35-46) 50 mmHg (35-46) Arterial Blood pCO2 (Temp correct) 52 mmHg Arterial Blood pO2 at Patient Temp 81 mmHg (85-108) 59 mmHg (85-108) Arterial Blood pO2 (Temp corrected) 65 mmHg Arterial Blood HCO3 13 mmol/L (21-28) 18 mmol/L (21-28) Arterial Blood Base Excess -20 mmol/L (-3-3) -11 mmol/L (-3-3) FiO2 100 100% ac 26 400 5 White Blood Count 21.6 x10^3/uL (4.0-11.0) Red Blood Count 4.81 x10^6/uL (3.50-5.40) Hemoglobin 15.1 g/dL (12.0-15.5) Hematocrit 45.2 % (36.0-47.0) Mean Corpuscular Volume 94 fL (79-100) Mean Corpuscular Hemoglobin 31 pg (25-35) Mean Corpuscular Hemoglobin Concent 33 g/dL (31-37) Red Cell Distribution Width 12.6 % (11.5-14.5) Platelet Count 355 x10^3/uL (140-400) Neutrophils (%) (Auto) 94 % (31-73) Lymphocytes (%) (Auto) 5 % (24-48) Monocytes (%) (Auto) 1 % (0-9) Eosinophils (%) (Auto) 0 % (0-3) Basophils (%) (Auto) 0 % (0-3) Neutrophils # (Auto) 20.3 x10^3/uL (1.8-7.7) Lymphocytes # (Auto) 1.0 x10^3/uL (1.0-4.8) Monocytes # (Auto) 0.2 x10^3/uL (0.0-1.1) Eosinophils # (Auto) 0.0 x10^3/uL (0.0-0.7) Basophils # (Auto) 0.0 x10^3/uL (0.0-0.2) Segmented Neutrophils % 70 % (35-66) Band Neutrophils % 21 % (0-9) Lymphocytes % 5 % (24-48) Monocytes % 1 % (0-10) Metamyelocytes % 3 % (0-0) Platelet Estimate Adequate (ADEQUATE) Prothrombin Time 16.9 SEC (11.7-14.0) Prothromb Time International Ratio 1.4 (0.8-1.1) Activated Partial Thromboplast Time 33 SEC (24-38) Sodium Level 148 mmol/L (136-145) Potassium Level 3.5 mmol/L (3.5-5.1) Chloride Level 109 mmol/L (98-107) Carbon Dioxide Level 22 mmol/L (21-32) Anion Gap 17 (6-14) Blood Urea Nitrogen 9 mg/dL (7-20) Creatinine 0.7 mg/dL (0.6-1.0) Estimated GFR (Cockcroft-Gault) 94.7 BUN/Creatinine Ratio 13 (6-20) Glucose Level 65 mg/dL (70-99) Lactic Acid Level 6.1 mmol/L (0.4-2.0) 3.7 mmol/L (0.4-2.0) Calcium Level 6.7 mg/dL (8.5-10.1) Total Bilirubin 0.2 mg/dL (0.2-1.0) Aspartate Amino Transf (AST/SGOT) 504 U/L (15-37) Alanine Aminotransferase (ALT/SGPT) 217 U/L (14-59) Alkaline Phosphatase 193 U/L (46-116) Total Protein 5.6 g/dL (6.4-8.2) Albumin 2.5 g/dL (3.4-5.0) Albumin/Globulin Ratio 0.8 (1.0-1.7) Test 07/04/21 05:30 White Blood Count 29.0 x10^3/uL (4.0-11.0) Red Blood Count 5.07 x10^6/uL (3.50-5.40) Hemoglobin 15.9 g/dL (12.0-15.5) Hematocrit 46.8 % (36.0-47.0) Mean Corpuscular Volume 92 fL (79-100) Mean Corpuscular Hemoglobin 31 pg (25-35) Mean Corpuscular Hemoglobin Concent 34 g/dL (31-37) Red Cell Distribution Width 12.8 % (11.5-14.5) Platelet Count 201 x10^3/uL (140-400) Neutrophils (%) (Auto) 90 % (31-73) Lymphocytes (%) (Auto) 7 % (24-48) Monocytes (%) (Auto) 2 % (0-9) Eosinophils (%) (Auto) 0 % (0-3) Basophils (%) (Auto) 1 % (0-3) Neutrophils # (Auto) 26.1 x10^3/uL (1.8-7.7) Lymphocytes # (Auto) 2.1 x10^3/uL (1.0-4.8) Monocytes # (Auto) 0.6 x10^3/uL (0.0-1.1) Eosinophils # (Auto) 0.0 x10^3/uL (0.0-0.7) Basophils # (Auto) 0.1 x10^3/uL (0.0-0.2) Sodium Level 153 mmol/L (136-145) Potassium Level 3.7 mmol/L (3.5-5.1) Chloride Level 118 mmol/L (98-107) Carbon Dioxide Level 20 mmol/L (21-32) Anion Gap 15 (6-14) Blood Urea Nitrogen 16 mg/dL (7-20) Creatinine 1.4 mg/dL (0.6-1.0) Estimated GFR (Cockcroft-Gault) 42.5 BUN/Creatinine Ratio 11 (6-20) Glucose Level 170 mg/dL (70-99) Calcium Level 6.7 mg/dL (8.5-10.1) Total Bilirubin 0.2 mg/dL (0.2-1.0) Aspartate Amino Transf (AST/SGOT) 248 U/L (15-37) Alanine Aminotransferase (ALT/SGPT) 191 U/L (14-59) Alkaline Phosphatase 91 U/L (46-116) Total Protein 6.3 g/dL (6.4-8.2) Albumin 2.4 g/dL (3.4-5.0) Albumin/Globulin Ratio 0.6 (1.0-1.7) Laboratory Tests Test 07/03/21 12:00 07/03/21 14:15 07/04/21 05:30 O2 Saturation 88 % (92-99) Arterial Blood pH 7.16 (7.35-7.45) Arterial Blood pCO2 at Patient Temp 50 mmHg (35-46) Arterial Blood pO2 at Patient Temp 59 mmHg (85-108) Arterial Blood HCO3 18 mmol/L (21-28) Arterial Blood Base Excess -11 mmol/L (-3-3) FiO2 100% ac 26 400 5 Lactic Acid Level 3.7 mmol/L (0.4-2.0) White Blood Count 29.0 x10^3/uL (4.0-11.0) Red Blood Count 5.07 x10^6/uL (3.50-5.40) Hemoglobin 15.9 g/dL (12.0-15.5) Hematocrit 46.8 % (36.0-47.0) Mean Corpuscular Volume 92 fL (79-100) Mean Corpuscular Hemoglobin 31 pg (25-35) Mean Corpuscular Hemoglobin Concent 34 g/dL (31-37) Red Cell Distribution Width 12.8 % (11.5-14.5) Platelet Count 201 x10^3/uL (140-400) Neutrophils (%) (Auto) 90 % (31-73) Lymphocytes (%) (Auto) 7 % (24-48) Monocytes (%) (Auto) 2 % (0-9) Eosinophils (%) (Auto) 0 % (0-3) Basophils (%) (Auto) 1 % (0-3) Neutrophils # (Auto) 26.1 x10^3/uL (1.8-7.7) Lymphocytes # (Auto) 2.1 x10^3/uL (1.0-4.8) Monocytes # (Auto) 0.6 x10^3/uL (0.0-1.1) Eosinophils # (Auto) 0.0 x10^3/uL (0.0-0.7) Basophils # (Auto) 0.1 x10^3/uL (0.0-0.2) Sodium Level 153 mmol/L (136-145) Potassium Level 3.7 mmol/L (3.5-5.1) Chloride Level 118 mmol/L (98-107) Carbon Dioxide Level 20 mmol/L (21-32) Anion Gap 15 (6-14) Blood Urea Nitrogen 16 mg/dL (7-20) Creatinine 1.4 mg/dL (0.6-1.0) Estimated GFR (Cockcroft-Gault) 42.5 BUN/Creatinine Ratio 11 (6-20) Glucose Level 170 mg/dL (70-99) Calcium Level 6.7 mg/dL (8.5-10.1) Total Bilirubin 0.2 mg/dL (0.2-1.0) Aspartate Amino Transf (AST/SGOT) 248 U/L (15-37) Alanine Aminotransferase (ALT/SGPT) 191 U/L (14-59) Alkaline Phosphatase 91 U/L (46-116) Total Protein 6.3 g/dL (6.4-8.2) Albumin 2.4 g/dL (3.4-5.0) Albumin/Globulin Ratio 0.6 (1.0-1.7) Medications Current Medications Norepinephrine Bitartrate 8 mg/ Dextrose 258 ml @ 8.727 mls/ hr CONT PRN IV PER PROTOCOL Last administered on 07/03/21at 14:27; Start 07/03/21 at 10:00 Phenylephrine HCl 50 mg/Sodium Chloride 255 ml @ 6.9 mls/hr CONT PRN IV PER PROTOCOL Last administered on 07/03/21at 18:18; Start 07/03/21 at 10:00 Sodium Chloride 1,000 ml @ 1,000 mls/hr 1X ONCE IV Last administered on 07/03/21at 10:00; Start 07/03/21 at 10:00; Stop 07/03/21 at 10:59; Status DC Sodium Chloride (Normal Saline Flush) 3 ml QSHIFT PRN IV AFTER MEDS AND BLOOD DRAWS; Start 07/03/21 at 10:00 Sodium Bicarbonate (Sodium Bicarb Adult 8.4% Syr) 100 meq 1X ONCE IV Last administered on 07/03/21at 11:03; Start 07/03/21 at 11:00; Stop 07/03/21 at 11:01; Status DC Sodium Chloride 1,000 ml @ 500 mls/hr Q2H IV Last administered on 07/03/21at 13:15; Start 07/03/21 at 11:15; Stop 07/03/21 at 17:43; Status DC Ceftriaxone Sodium (Rocephin) 1 gm Q24H IVP Last administered on 07/03/21at 12:28; Start 07/03/21 at 12:00 Sodium Bicarbonate (Sodium Bicarb Adult 8.4% Syr) 100 meq 1X ONCE IV Last administered on 07/03/21at 12:27; Start 07/03/21 at 12:30; Stop 07/03/21 at 12:31; Status DC Sodium Chloride 1,000 ml @ 500 mls/hr Q2H PRN IV hypotention; Start 07/03/21 at 17:45 Vitals/I & O Vital Sign - Last 24 Hours 07/03/21 07/03/21 07/03/21 07/03/21 11:00 11:15 11:30 11:43 Pulse 128 136 142 Resp B/P (MAP) 92/48 172/102 170/128 Pulse Ox 90 90 O2 Delivery Ventilator Ventilator Ventilator Ventilator 07/03/21 07/03/21 07/03/21 07/03/21 11:45 12:00 12:00 12:15 Temp 97.0 97.0 Pulse 144 156 158 Resp B/P (MAP) 166/ 126/108 124/96 Pulse Ox 89 O2 Delivery Ventilator Ventilator Mechanical Ventilator Ventilator 07/03/21 07/03/21 07/03/21 07/03/21 12:30 12:45 12:56 13:15 Temp 98.3 98.3 Pulse 152 160 142 158 Resp B/P (MAP) 102/74 108/90 80/57 110/84 Pulse Ox 90 88 O2 Delivery Ventilator Ventilator Ventilator 07/03/21 07/03/21 07/03/21 07/03/21 13:17 14:00 14:15 15:00 Temp 100.7 100.7 Pulse 140 140 140 Resp B/P (MAP) 90/54 88/63 85/47 Pulse Ox 95 98 98 O2 Delivery Ventilator Ventilator Ventilator 07/03/21 07/03/21 07/03/21 07/03/21 15:13 15:15 16:00 16:00 Temp 100.1 100.1 Pulse 140 144 Resp 28 28 B/P (MAP) 80/54 88/66 Pulse Ox 100 98 98 O2 Delivery Ventilator Ventilator Ventilator Mechanical Ventilator 07/03/21 07/03/21 07/03/21 07/03/21 17:00 17:07 18:00 19:00 Pulse 138 138 140 Resp 28 28 28 B/P (MAP) 113/82 110/80 160/118 Pulse Ox 100 100 100 100 O2 Delivery Ventilator Ventilator Ventilator Ventilator 07/03/21 07/03/21 07/03/21 07/03/21 20:00 20:00 20:00 21:00 Temp 103.1 103.1 Pulse 150 158 Resp 28 28 B/P (MAP) 168/128 186/140 Pulse Ox 100 100 100 O2 Delivery Mechanical Ventilator Ventilator Ventilator Ventilator 07/03/21 07/03/21 07/03/21 07/03/21 22:00 22:00 23:00 23:59 Pulse 160 162 Resp 28 28 B/P (MAP) 122/102 116/94 Pulse Ox 100 100 100 O2 Delivery Ventilator Ventilator Ventilator Mechanical Ventilator 07/04/21 07/04/21 07/04/21 07/04/21 00:00 01:00 01:00 02:00 Temp 100.5 100.5 Pulse 158 154 145 Resp 28 28 28 B/P (MAP) 104/86 104/82 104/82 Pulse Ox 100 100 100 100 O2 Delivery Ventilator Ventilator Ventilator Ventilator 07/04/21 07/04/21 07/04/21 07/04/21 03:00 04:00 04:00 04:45 Temp 98.5 98.5 Pulse 146 138 Resp 28 28 B/P (MAP) 102/80 98/78 Pulse Ox 100 100 100 O2 Delivery Ventilator Mechanical Ventilator Ventilator Ventilator 07/04/21 07/04/21 07/04/21 07/04/21 05:00 06:00 07:00 07:27 Pulse 138 136 134 Resp 28 28 28 B/P (MAP) 90/74 83/68 102/68 Pulse Ox 100 100 100 100 O2 Delivery Ventilator Ventilator Ventilator Ventilator 07/04/21 07/04/21 07/04/2122 08:00 08:00 09:00 10:00 Temp 97.5 97.5 Pulse 138 13 13 Resp 28 16 16 B/P (MAP) 102/76 96/68 96/68 Pulse Ox 100 100 100 O2 Delivery Ventilator Mechanical Ventilator Ventilator Ventilator 07/04/21 10:36 O2 Delivery Ventilator Intake and Output 07/03/21 07/03/21 07/04/21 15:00 23:00 07:00 Intake Total 681.24 ml Output Total 950 ml 1350 ml 780 ml Balance -950 ml -668.76 ml -780 ml Justicifation of Admission Dx: Justifications for Admission: Justification of Admission Dx: N/A RODNEY CORONA MD Jul 04, 2021 10:53
[2021-07-04 12:27] LABS: FIO2 ABG 100% AC 28 VT 400 +5
[2021-07-04 12:29] LABS: FIO2 ABG 100 AC 12 VT 400 +5
[2021-07-04 12:31] LABS: FIO2 ABG 10 LPM APNEA TEST; PCO2 ABG 95 mmHg (35-46)
[2021-07-04] MEDS: cefTRIAXone IV Push 1 GM VIAL. IVP SCH (12:58)
[2021-07-04] MEDS ORDERED: IV RINGERS,LACTATED 1000ML 1,000 ML IV ONE (13:00)
--- NOTE | 2021-07-04 16:46 | NUR ---
Patient dc and re-admitted under [facility].
--- NOTE | 2021-07-05 04:33 | PN ---
DATE: 07/04/2021 SUBJECTIVE: The patient continues to be intubated and mechanically ventilated. She is normothermic, off Levophed. The cold water test was done by Dr. Mckeon and apparently was positive. She was seen in consultation by Dr. Mckeon yesterday and her pupils are nonreactive to bright light. Her corneal reflexes are absent, oculocephalic reflex absent, oculo-vestibular reflex absent. No facial movement and gag reflex absent and cough reflex absent. OBJECTIVE: GENERAL: On examining her today, she was resting flat in bed, in no apparent respiratory distress. VITAL SIGNS: Her heart rate was 138, blood pressure was 102/76, temperature was 97.5, respiratory rate was 16 and oxygen saturation was 100% on FiO2 of 100%. HEAD, EYES, EARS, NOSE, AND THROAT: Normocephalic, atraumatic. She has orotracheal and orogastric tube in place. NECK: Supple. HEART: Showed normal first and second heart sounds. No gallop, rub or murmur. CHEST: Shows central trachea, equal bilateral chest expansion, air entry, vesicular breath sounds. I could not appreciate any crepitation or rhonchi. ABDOMEN: Scaphoid, soft, nontender. NEUROLOGIC: She is Maria Guadalupe coma scale of 3. Her intake was 680, output was 3080. LABORATORY DATA: This morning showed a white cell count of 29,000, hemoglobin 15, hematocrit 46, MCV 92 and platelet count 201,000. Her serum sodium 153, potassium 3.7, chloride 118, bicarbonate 20, anion gap of 15, BUN 16, creatinine 1.4. Estimated GFR was 42, glucose 170, calcium is 6.7. Total bilirubin and alkaline phosphatase are normal. AST, ALT slightly elevated, although trending down. Total protein 6.3, albumin 2.4. ASSESSMENT: 1. This is a 35-year-old [place] with asphyxia by strangulation as a suicide and self-inflicted injury. 2. She has cardiac arrest. 3. Acute hypoxic respiratory failure. 4. Anoxic encephalopathy. Her overall prognosis is extremely poor. CURT/AGUSTINA/JOSE DR: CURT/onelia TID: [id number]
[2021-07-05] MEDS ORDERED: IV DEXTROSE 5% 1,000 ML IV SCH (09:00)
== END 2021-07-04 10:53 | DRG 208 ==
LOC: 1 WEST ICU 09:14 → UNDODISIN 07-04 10:52
PROVIDERS: ADMIT Internal Medicine; ATTEND Internal Medicine
PROC: 02H633Z Insertion of Infusion Device into Right Atrium, Percutaneous Approach (ICD-10-PCS; principal; 2021-07-03)
PROC: 5A1945Z Respiratory Ventilation, 24-96 Consecutive Hours (ICD-10-PCS; 2021-07-03)
PROC: B548ZZA Ultrasonography of Superior Vena Cava, Guidance (ICD-10-PCS; 2021-07-03)
PROC: 0BH17EZ Insertion of Endotracheal Airway into Trachea, Via Natural or Artificial Opening (ICD-10-PCS; 2021-07-03)
DX: J96.01 Acute respiratory failure with hypoxia (principal); E87.2 Acidosis; G93.1 Anoxic brain damage, not elsewhere classified; I46.9 Cardiac arrest, cause unspecified; D72.829 Elevated white blood cell count, unspecified; F32.A Depression, unspecified; I10 Essential (primary) hypertension; I95.81 Postprocedural hypotension; Z91.51 Personal history of suicidal behavior
CPT/HCPCS: 36415; 36556; 36600; 71045; 76937; 80053; 82805; 83605; 85007; 85025; 85610; 85730; 94002; 94003; C1892; J0696; J2370; J3490; J7030; J7050; J7060; J7120; G0378

== ENCOUNTER 2021-07-04 10:53 | Inpatient (IN) | payer OTHER ==
[2021-07-04] MEDS ORDERED: DESMOPRESSIN 4 MCG/ML AMPUL. IV SCH (17:15)
[2021-07-04] MEDS ORDERED: IV RINGERS,LACTATED 1000ML 1,000 ML IV ONE (17:15)
[2021-07-04] MEDS ORDERED: cefTRIAXone IV Push 1 GM VIAL. IVP SCH (17:45)
[2021-07-04] MEDS ORDERED: IV DEXTROSE 5 %-0.45 % NACL 1,000 ML IV SCH (17:45)
[2021-07-04] MEDS ORDERED: VECURONIUM BOLUS 10 MG VIAL. IV ONE (17:45)
[2021-07-04] MEDS ORDERED: ceFAZolin SODIUM IV Push 1 GM VIAL. IVP PRN (17:45)
[2021-07-04] MEDS ORDERED: DESMOPRESSIN 4 MCG/ML AMPUL. IV ONE (17:45)
[2021-07-04] MEDS ORDERED: MINERAL OIL/PETROLATUM,WHITE OPHTH OINT 3.5GM TUBE. OU PRN (17:45)
[2021-07-04 18:08] LABS: BASE EXCESS ABG -1 mmol/L (-3-3); HCO3 ABG 20 mmol/L (21-28); PCO2 ABG 26 mmHg (35-46); PO2 ABG 426 mmHg (85-108); SAT O2 ABG 99 % (92-99)
[2021-07-04 18:13] LABS: FIO2 ABG 100% AC 26 400 5
[2021-07-04 19:20] LABS: BASO % 0 % (0-3); EOS % 0 % (0-3); HEMATOCRIT 37.5 % (36.0-47.0); HEMOGLOBIN 12.6 g/dL (12.0-15.5); LYMPH # 2.2 x10^3/uL (1.0-4.8); LYMPH % 12 % (24-48); MEAN CORPUSCULAR HEMOGLOBIN 31 pg (25-35); MEAN CORPUSCULAR HGB CONC 34 g/dL (31-37); MEAN CORPUSCULAR VOLUME 93 fL (79-100); MONO # 0.4 x10^3/uL (0.0-1.1); MONO % 2 % (0-9); NEUT # 15.8 x10^3/uL (1.8-7.7); NEUT % 86 % (31-73); PLATELET COUNT 139 x10^3/uL (140-400); RED BLOOD COUNT 4.04 x10^6/uL (3.50-5.40); RED CELL DISTRIBUTION WIDTH 12.9 % (11.5-14.5); WHITE BLOOD COUNT 18.4 x10^3/uL (4.0-11.0)
[2021-07-04 19:32] LABS: PROTHROMBIN TIME PATIENT 18.7 SEC (11.7-14.0)
[2021-07-04 19:38] LABS: ALBUMIN 1.8 g/dL (3.4-5.0); CALCIUM 7.6 mg/dL (8.5-10.1); CREATININE 1.1 mg/dL (0.6-1.0); DIRECT BILIRUBIN 0.1 mg/dL (0.0-0.2); GFR 56.2; MAGNESIUM 1.6 mg/dL (1.8-2.4); TOTAL BILIRUBIN 0.2 mg/dL (0.2-1.0)
[2021-07-04 19:45] LABS: POTASSIUM 2.7 mmol/L (3.5-5.1)
[2021-07-04] MEDS ORDERED: ALBUMIN HUMAN 5% 500 ML IV ONE (20:00)
[2021-07-04] MEDS ORDERED: POTASSIUM PHOS M BASIC D BASIC IV SCH (20:00)
[2021-07-04] MEDS ORDERED: DEXTROSE 5% IV SCH (20:00)
[2021-07-04] MEDS ORDERED: MAGNESIUM SULFATE 2GM 50 ML IV ONE (20:00)
[2021-07-04 20:02] LABS: % BANDS 30 % (0-9); % LYMPHS 11 % (24-48); % METAS 1 % (0-0); % MONOS 1 % (0-10); % SEGS 57 % (35-66)
[2021-07-04 20:03] LABS: PLT ESTIMATE ADEQUATE (ADEQUATE)
[2021-07-04] MEDS: POTASSIUM PHOS M BASIC D BASIC IV SCH (20:19)
[2021-07-04] MEDS: DEXTROSE 5% IV SCH (20:19)
--- NOTE | 2021-07-04 20:23 | RAD ---
Exam: Chest one view INDICATION: Organ donation TECHNIQUE: Frontal view of the chest Comparisons: 07/03/2021 FINDINGS: Endotracheal tube with tip approximately 5 cm above the nav. There is a right IJ catheter with tip at the atrial caval junction. Enteric tube with tip in the left upper quadrant likely in stomach. Si dehole projects at the lower chest is likely in the distal thorax. The cardiomediastinal silhouette and pulmonary vessels are within normal limits. Persistent bilateral airspace disease not significant changed from prior study. IMPRESSION: Stable exam Electronically signed by: Leeanne Pérez MD (07/04/2021 8:20 PM) [facility]
[2021-07-04] MEDS: IV DEXTROSE 5% 1,000 ML IV SCH (20:48)
[2021-07-04] MEDS ORDERED: CALCIUM GLUCONATE 1,000 MG/10 ML VIAL. IVP ONE (21:00)
[2021-07-04] MEDS: ENOXAPARIN 30 MG/0.3 ML SYRINGE. SQ SCH (22:16)
[2021-07-04 22:33] LABS: AMORPHOUS SEDIMENT,UR PRESENT /HPF; BACTERIA,URINE 0 /HPF (0-FEW)
[2021-07-05 00:31] LABS: BASO % 0 % (0-3); EOS % 0 % (0-3); HEMATOCRIT 32.3 % (36.0-47.0); HEMOGLOBIN 10.8 g/dL (12.0-15.5); LYMPH # 0.8 x10^3/uL (1.0-4.8); LYMPH % 4 % (24-48); MEAN CORPUSCULAR HEMOGLOBIN 31 pg (25-35); MEAN CORPUSCULAR HGB CONC 33 g/dL (31-37); MEAN CORPUSCULAR VOLUME 93 fL (79-100); MONO # 0.3 x10^3/uL (0.0-1.1); MONO % 1 % (0-9); NEUT # 17.9 x10^3/uL (1.8-7.7); NEUT % 94 % (31-73); PLATELET COUNT 119 x10^3/uL (140-400); RED BLOOD COUNT 3.46 x10^6/uL (3.50-5.40); RED CELL DISTRIBUTION WIDTH 12.6 % (11.5-14.5)
[2021-07-05 00:42] LABS: PROTHROMBIN TIME PATIENT 18.4 SEC (11.7-14.0)
[2021-07-05 00:47] LABS: ALBUMIN 2.6 g/dL (3.4-5.0); DIRECT BILIRUBIN 0.2 mg/dL (0.0-0.2); MAGNESIUM 2.3 mg/dL (1.8-2.4); PHOSPHORUS 2.7 mg/dL (2.6-4.7); TOTAL BILIRUBIN 0.4 mg/dL (0.2-1.0); TOTAL PROTEIN 5.6 g/dL (6.4-8.2)
[2021-07-05] MEDS ORDERED: POTASSIUM CHLORIDE 20MEQ 100 ML IV ONE ×2 (01:30→02:30)
[2021-07-05] MEDS: METOPROLOL IV PUSH 5 MG/5 ML VIAL. IVP PRN ×2 (04:28→06:12)
[2021-07-05 06:12] VITALS: BP 181/110
[2021-07-05 06:25] LABS: BASO % 0 % (0-3); EOS % 0 % (0-3); HEMATOCRIT 39.3 % (36.0-47.0); HEMOGLOBIN 12.9 g/dL (12.0-15.5); LYMPH # 0.7 x10^3/uL (1.0-4.8); LYMPH % 4 % (24-48); MEAN CORPUSCULAR HEMOGLOBIN 30 pg (25-35); MEAN CORPUSCULAR HGB CONC 33 g/dL (31-37); MEAN CORPUSCULAR VOLUME 93 fL (79-100); MONO # 0.2 x10^3/uL (0.0-1.1); MONO % 1 % (0-9); NEUT # 16.5 x10^3/uL (1.8-7.7); NEUT % 95 % (31-73); PLATELET COUNT 95 x10^3/uL (140-400); RED BLOOD COUNT 4.23 x10^6/uL (3.50-5.40); RED CELL DISTRIBUTION WIDTH 13.1 % (11.5-14.5); WHITE BLOOD COUNT 17.4 x10^3/uL (4.0-11.0)
[2021-07-05 06:49] LABS: ALBUMIN 2.5 g/dL (3.4-5.0); DIRECT BILIRUBIN 0.1 mg/dL (0.0-0.2); MAGNESIUM 1.8 mg/dL (1.8-2.4); PHOSPHORUS 2.1 mg/dL (2.6-4.7); TOTAL BILIRUBIN 0.3 mg/dL (0.2-1.0); TOTAL PROTEIN 5.1 g/dL (6.4-8.2)
[2021-07-05 07:14] LABS: PROTHROMBIN TIME PATIENT 16.7 SEC (11.7-14.0)
[2021-07-05] MEDS: POTASSIUM PHOS M BASIC D BASIC IV SCH (07:21)
[2021-07-05] MEDS: DEXTROSE 5% IV SCH (07:21)
--- NOTE | 2021-07-05 11:25 | RAD ---
XR CHEST 1V History: Reason: ORGAN DONATION / Spl. Instructions: / History: Comparison: July 04, 2021 Findings: Unchanged endotracheal tube, enteric tube and right IJ central line. Ill-defined mid lung opacities, decreased compared to prior. No pleural effusion. No pneumothorax. Impression: 1. Decreased ill-defined mid lung opacities. Electronically signed by: Rodger Ramírez DO (07/05/2021 11:22 AM) [id number]
[2021-07-05] MEDS ORDERED: DESMOPRESSIN 4 MCG/ML AMPUL. SQ ONE ×2 (12:45→20:00)
[2021-07-05] MEDS: IV DEXTROSE 5% 1,000 ML IV SCH (13:16)
[2021-07-05 13:28] LABS: BASO % 0 % (0-3); EOS % 0 % (0-3); HEMATOCRIT 31.8 % (36.0-47.0); HEMOGLOBIN 10.4 g/dL (12.0-15.5); LYMPH # 0.8 x10^3/uL (1.0-4.8); LYMPH % 4 % (24-48); MEAN CORPUSCULAR HEMOGLOBIN 30 pg (25-35); MEAN CORPUSCULAR HGB CONC 33 g/dL (31-37); MEAN CORPUSCULAR VOLUME 93 fL (79-100); MONO # 0.5 x10^3/uL (0.0-1.1); MONO % 2 % (0-9); NEUT # 22.7 x10^3/uL (1.8-7.7); NEUT % 94 % (31-73); PLATELET COUNT 120 x10^3/uL (140-400); RED BLOOD COUNT 3.43 x10^6/uL (3.50-5.40); RED CELL DISTRIBUTION WIDTH 12.7 % (11.5-14.5); WHITE BLOOD COUNT 24.1 x10^3/uL (4.0-11.0)
[2021-07-05 13:31] LABS: ALBUMIN 2.5 g/dL (3.4-5.0); CALCIUM 8.2 mg/dL (8.5-10.1); CREATININE 0.8 mg/dL (0.6-1.0); DIRECT BILIRUBIN 0.1 mg/dL (0.0-0.2); GFR 81.2; MAGNESIUM 1.7 mg/dL (1.8-2.4); PHOSPHORUS 3.2 mg/dL (2.6-4.7); POTASSIUM 3.5 mmol/L (3.5-5.1); TOTAL BILIRUBIN 0.3 mg/dL (0.2-1.0); TOTAL PROTEIN 5.9 g/dL (6.4-8.2)
[2021-07-05 13:39] LABS: PROTHROMBIN TIME PATIENT 15.3 SEC (11.7-14.0)
[2021-07-05] MEDS ORDERED: ALBUMIN HUMAN 25% 100 ML IV ONE (13:45)
[2021-07-05] MEDS ORDERED: ALBUMIN HUMAN 5% 500 ML IV ONE (13:45)
[2021-07-05 15:14] LABS: BASE EXCESS ABG -5 mmol/L (-3-3); HCO3 ABG 18 mmol/L (21-28); PCO2 ABG 26 mmHg (35-46); PO2 ABG 422 mmHg (85-108); SAT O2 ABG 99 % (92-99)
[2021-07-05 15:24] LABS: FIO2 ABG 100% VENT
--- NOTE | 2021-07-05 15:46 | CARD ---
MR#: [id number] Date of Study: 07/05/2021 Ordering Physician: [facility], Referring Physician: KENNA Nickie VAUGHN: Josselin Balbuena YEYO APPROVED REPORT EXAM: Two-dimensional and M-mode echocardiogram with Doppler and color Doppler. Other Information Quality : AverageHR: 110bpm Rhythm : Tachycardia INDICATION 2D DIMENSIONS Left Atrium(2D)1.7 (1.6-4.0cm)IVSd0.7 (0.7-1.1cm) Aortic Root(2D)2.7 (2.0-3.7cm)LVDd3.7 (3.9-5.9cm) LVOT Diameter1.6 (1.8-2.4cm)PWd0.8 (0.7-1.1cm) LVDs2.0 (2.5-4.0cm)FS (%) 44.4 % SV43.9 mlLVEF(%)76.5 (>50%) Aortic Valve AoV Peak Sonu.123.1cm/Jordan Peak GR.6.1mmHg LVOT Peak Sonu.101.2cm/sAVA (VMAX)1.60cm2 Tricuspid Valve TR P. Rpfyjxny535lk/sTR Peak Gr.20mmHg LEFT VENTRICLE The left ventricle is normal size. There is normal left ventricular wall thickness. The left ventricu lar systolic function is mildly decreased. EF 45% The basal to distal inferolateral and basal to mid lateral wall appears to be moderately hypokinetic. Otherwise, grossly normal wall motion. The left ve ntricular diastolic function and filling is normal for age. No left ventricle thrombus noted on this study. RIGHT VENTRICLE The right ventricle is normal size. There is normal right ventricular wall thickness. The right ventr icular systolic function is normal. ATRIA The left atrium size is normal. The right atrium size is normal. The interatrial septum is intact wit h no evidence for an atrial septal defect or patent foramen ovale as noted on 2-D or Doppler imaging. AORTIC VALVE The aortic valve is normal in structure and function. Doppler and Color Flow revealed no significant aortic regurgitation. There is no significant aortic valvular stenosis. MITRAL VALVE The mitral valve is normal in structure and function. There is no evidence of mitral valve prolapse. There is no mitral valve stenosis. Doppler and Color Flow revealed no mitral valve regurgitation note d. TRICUSPID VALVE The tricuspid valve is normal in structure and function. Doppler and Color Flow revealed trace to mil d tricuspid regurgitation. Estimated PAP 25-30 mmHg. PULMONIC VALVE Doppler and Color Flow revealed no pulmonic valvular regurgitation. There is no pulmonic valvular benjamín nosis. GREAT VESSELS The aortic root is normal in size. The ascending aorta is normal in size. The IVC is normal in size a nd collapses <50% with inspiration. PERICARDIAL EFFUSION There is no evidence of significant pericardial effusion. Critical Notification Critical Value: No <Conclusion> The left ventricular systolic function is mildly decreased. EF 45% The basal to distal inferolateral and basal to mid lateral wall appears to be moderately hypokinetic. Otherwise, grossly normal wall motion. Doppler and Color Flow revealed trace to mild tricuspid regurgitation. Estimated PAP 25-30 mmHg. Signed by : Edil Kaye, Electronically Approved : 07/05/2021 15:46:01
--- NOTE | 2021-07-05 16:08 | EKG ---
[facility] [address] [place] [address] Test Date: 2021-07-05 Test Time: 16:04:31 Pat Name: MARY GARZA Department: Room: 102 1 Gender: F Material Mixer: EDMUND : 1985 Requested By: FRIDAY [facility] ORGAN Order Number: [id number] Reading MD: Houston Agarwal Measurements Intervals [place] Rate: 95 P: 70 GA: 106 QRS: 64 QRSD: 72 T: 59 QT: 380 QTc: 481 Interpretive Statements SINUS RHYTHM PROLONGED QT Electronically Signed On 07-06-2021 18:07:13 CDT by Houston Agarwal
[2021-07-05 18:30] LABS: BASO % 0 % (0-3); EOS % 0 % (0-3); HEMATOCRIT 27.5 % (36.0-47.0); HEMOGLOBIN 9.3 g/dL (12.0-15.5); LYMPH # 1.1 x10^3/uL (1.0-4.8); LYMPH % 5 % (24-48); MEAN CORPUSCULAR HEMOGLOBIN 31 pg (25-35); MEAN CORPUSCULAR HGB CONC 34 g/dL (31-37); MEAN CORPUSCULAR VOLUME 93 fL (79-100); MONO # 0.4 x10^3/uL (0.0-1.1); MONO % 2 % (0-9); NEUT # 20.7 x10^3/uL (1.8-7.7); NEUT % 93 % (31-73); PLATELET COUNT 100 x10^3/uL (140-400); RED BLOOD COUNT 2.97 x10^6/uL (3.50-5.40); RED CELL DISTRIBUTION WIDTH 12.9 % (11.5-14.5); WHITE BLOOD COUNT 22.2 x10^3/uL (4.0-11.0)
[2021-07-05 18:32] LABS: BASE EXCESS ABG -3 mmol/L (-3-3); HCO3 ABG 19 mmol/L (21-28); PCO2 ABG 26 mmHg (35-46); PO2 ABG 410 mmHg (85-108); SAT O2 ABG 99 % (92-99)
[2021-07-05 18:43] LABS: PROTHROMBIN TIME PATIENT 15.1 SEC (11.7-14.0)
[2021-07-05 19:04] LABS: % BANDS 21 % (0-9); % LYMPHS 8 % (24-48); % SEGS 71 % (35-66); CALCIUM 8.1 mg/dL (8.5-10.1); CREATININE 0.6 mg/dL (0.6-1.0); DIRECT BILIRUBIN 0.1 mg/dL (0.0-0.2); GFR 113.1; MAGNESIUM 1.5 mg/dL (1.8-2.4); PHOSPHORUS 2.2 mg/dL (2.6-4.7); PLT ESTIMATE DECREASED (ADEQUATE); POTASSIUM 3.1 mmol/L (3.5-5.1); TOTAL BILIRUBIN 0.5 mg/dL (0.2-1.0); TOTAL PROTEIN 5.4 g/dL (6.4-8.2)
[2021-07-05] MEDS: IV NORMAL SALINE 1000ML BAG 1,000 ML IV SCH (19:09)
[2021-07-05] MEDS ORDERED: MAGNESIUM SULFATE 2GM 50 ML IV ONE (20:30)
[2021-07-05] MEDS: POTASSIUM PHOS,M-BASIC-D-BASIC 15 MMOL in IV NORMAL SALINE 100ML 100 ML IV SCH ×2 (20:59→22:55)
[2021-07-05] MEDS: ENOXAPARIN 30 MG/0.3 ML SYRINGE. SQ SCH (21:00)
[2021-07-06 00:08] LABS: HEMOGLOBIN A1C 5.1 % (4.8-5.6)
[2021-07-06 01:22] LABS: BASE EXCESS ABG -3 mmol/L (-3-3); HCO3 ABG 20 mmol/L (21-28); PCO2 ABG 28 mmHg (35-46); PO2 ABG > 503 mmHg (85-108); SAT O2 ABG 99 % (92-99)
[2021-07-06 01:30] LABS: BASO % 0 % (0-3); EOS % 0 % (0-3); HEMATOCRIT 24.9 % (36.0-47.0); HEMOGLOBIN 8.2 g/dL (12.0-15.5); LYMPH # 1.2 x10^3/uL (1.0-4.8); LYMPH % 6 % (24-48); MEAN CORPUSCULAR HEMOGLOBIN 31 pg (25-35); MEAN CORPUSCULAR HGB CONC 33 g/dL (31-37); MEAN CORPUSCULAR VOLUME 93 fL (79-100); MONO # 0.3 x10^3/uL (0.0-1.1); MONO % 2 % (0-9); NEUT # 17.4 x10^3/uL (1.8-7.7); NEUT % 92 % (31-73); PLATELET COUNT 93 x10^3/uL (140-400); RED BLOOD COUNT 2.67 x10^6/uL (3.50-5.40); RED CELL DISTRIBUTION WIDTH 12.5 % (11.5-14.5); WHITE BLOOD COUNT 18.9 x10^3/uL (4.0-11.0)
[2021-07-06 01:39] LABS: PROTHROMBIN TIME PATIENT 14.1 SEC (11.7-14.0)
[2021-07-06] MEDS ORDERED: ALBUMIN HUMAN 5% 250 ML IV ONE (01:45)
[2021-07-06 01:48] LABS: ALBUMIN 2.4 g/dL (3.4-5.0); CALCIUM 7.3 mg/dL (8.5-10.1); CREATININE 0.5 mg/dL (0.6-1.0); DIRECT BILIRUBIN 0.1 mg/dL (0.0-0.2); GFR 139.6; MAGNESIUM 1.9 mg/dL (1.8-2.4); PHOSPHORUS 3.6 mg/dL (2.6-4.7); POTASSIUM 3.3 mmol/L (3.5-5.1); TOTAL BILIRUBIN 0.4 mg/dL (0.2-1.0)
[2021-07-06 02:02] LABS: FIO2 ABG 100
[2021-07-06] MEDS: POTASSIUM PHOS,M-BASIC-D-BASIC 15 MMOL in IV NORMAL SALINE 100ML 100 ML IV SCH ×2 (05:09→07:25)
[2021-07-06] MEDS ORDERED: POTASSIUM CHLORIDE 20MEQ 100 ML IV ONE (05:15)
[2021-07-06] MEDS: IV NORMAL SALINE 1000ML BAG 1,000 ML IV SCH ×2 (07:25→19:00)
[2021-07-06 09:01] LABS: BASO % 0 % (0-3); EOS % 0 % (0-3); HEMATOCRIT 26.5 % (36.0-47.0); HEMOGLOBIN 8.8 g/dL (12.0-15.5); LYMPH % 6 % (24-48); MEAN CORPUSCULAR HEMOGLOBIN 31 pg (25-35); MEAN CORPUSCULAR HGB CONC 33 g/dL (31-37); MEAN CORPUSCULAR VOLUME 94 fL (79-100); MONO # 0.3 x10^3/uL (0.0-1.1); MONO % 2 % (0-9); NEUT # 17.3 x10^3/uL (1.8-7.7); NEUT % 93 % (31-73); PLATELET COUNT 89 x10^3/uL (140-400); RED BLOOD COUNT 2.83 x10^6/uL (3.50-5.40); RED CELL DISTRIBUTION WIDTH 12.8 % (11.5-14.5); WHITE BLOOD COUNT 18.7 x10^3/uL (4.0-11.0)
[2021-07-06 09:13] LABS: PARTIAL THROMBOPLASTIN TIME 36 SEC (24-38)
[2021-07-06 09:18] LABS: ALBUMIN 2.9 g/dL (3.4-5.0); CALCIUM 7.7 mg/dL (8.5-10.1); CREATININE 0.5 mg/dL (0.6-1.0); DIRECT BILIRUBIN 0.2 mg/dL (0.0-0.2); GFR 139.6; MAGNESIUM 1.9 mg/dL (1.8-2.4); PHOSPHORUS 6.4 mg/dL (2.6-4.7); POTASSIUM 5.2 mmol/L (3.5-5.1); TOTAL BILIRUBIN 0.5 mg/dL (0.2-1.0); TOTAL PROTEIN 5.4 g/dL (6.4-8.2)
[2021-07-06 09:19] LABS: BACTERIA,URINE 0 /HPF (0-FEW)
[2021-07-06 09:56] LABS: BASE EXCESS ABG -2 mmol/L (-3-3); HCO3 ABG 23 mmol/L (21-28); PCO2 ABG 39 mmHg (35-46); PO2 ABG 479 mmHg (85-108); SAT O2 ABG 99 % (92-99)
[2021-07-06 10:00] LABS: FIO2 ABG 100
--- NOTE | 2021-07-06 11:10 | CARD ---
MR#: [id number] Date of Study: 07/06/2021 Ordering Physician: HARMONY RODERICK, Referring Physician: HARMONY Nickie VAUGHN: Milo Richards [facility] APPROVED REPORT EXAM: Two-dimensional and M-mode echocardiogram with Doppler and color Doppler. Other Information Quality : GoodHR: 82bpm Rhythm : NSR INDICATION [facility] 2D DIMENSIONS Left Atrium(2D)2.8 (1.6-4.0cm)IVSd0.9 (0.7-1.1cm) Aortic Root(2D)2.6 (2.0-3.7cm)LVDd4.1 (3.9-5.9cm) LVOT Diameter1.8 (1.8-2.4cm)PWd0.9 (0.7-1.1cm) LVDs2.8 (2.5-4.0cm)FS (%) 32.9 % SV46.2 mlLVEF(%)61.9 (>50%) Aortic Valve AoV Peak Sonu.122.4cm/sAoV VTI26.3cm AO Peak GR.6.0mmHgLVOT Peak Sonu.101.8cm/s AO Mean GR.3mmHgAVA (VMAX)2.21cm2 Mitral Valve MV E Ipxovdqt275.1cm/sMV E Peak Gr.5mmHg MV DECEL CYLE409ihCT A Slleybhn90.5cm/s MV E Mean Gr.2mmHgE/A Ratio1.6 Pulmonary Valve PV Peak Qjikevqj00.9cm/s Tricuspid Valve TR P. Rabpscrx238hv/sTR Peak Gr.30mmHg Pulmonary Vein S1 Bzhckmgo34.6cm/sD2 Cyllzkdz46.5cm/s LEFT VENTRICLE The left ventricle is normal size. There is normal left ventricular wall thickness. The left ventricu lar systolic function is normal. The ejection fraction is 55-60%. There is normal LV segmental wall m otion. The left ventricular diastolic function and filling is normal for age. No left ventricle throm bus noted on this study. There is no ventricular septal defect visualized. There is no left ventricul ar aneurysm. There is no mass noted in the left ventricle. RIGHT VENTRICLE The right ventricle is normal size. There is normal right ventricular wall thickness. The right ventr icular systolic function is normal. ATRIA The left atrium size is normal. The right atrium size is normal. The interatrial septum is intact wit h no evidence for an atrial septal defect or patent foramen ovale as noted on 2-D or Doppler imaging. AORTIC VALVE The aortic valve is normal in structure and function. The aortic valve is trileaflet. Doppler and Col or Flow revealed no significant aortic regurgitation. There is no significant aortic valvular stenosi s. There is no aortic valvular vegetation. MITRAL VALVE The mitral valve is mildly thickened but opens well. There is no evidence of mitral valve prolapse. T here is no mitral valve stenosis. Doppler and Color-flow revealed trace mitral regurgitation. TRICUSPID VALVE The tricuspid valve is normal in structure and function. Doppler and Color Flow revealed trace tricus pid regurgitation. The PA pressure was estimated at 34 mmHg. There is no tricuspid valve prolapse or vegetation. There is no tricuspid valve stenosis. PULMONIC VALVE The pulmonary valve is normal in structure and function. Doppler and Color Flow revealed no pulmonic valvular regurgitation. There is no pulmonic valvular stenosis. GREAT VESSELS The aortic root is normal in size. The ascending aorta is normal in size. The pulmonary artery is nor mal. The IVC is normal in size and collapses >50% with inspiration. PERICARDIAL EFFUSION There is no pleural effusion. There is no evidence of significant pericardial effusion. Critical Notification Critical Value: No <Conclusion> The left ventricular systolic function is normal. The ejection fraction is 55-60%. There is normal LV segmental wall motion. Trace mitral regurgitation. Trace tricuspid regurgitation. The PA pressure was estimated at 34 mmHg. There is no evidence of significant pericardial effusion. Signed by : Sigifredo Escobar, Electronically Approved : 07/06/2021 11:10:26
[2021-07-06] MEDS ORDERED: DESMOPRESSIN 4 MCG/ML AMPUL. IV ONE (12:00)
--- NOTE | 2021-07-06 12:02 | EKG ---
[facility] [address] [place] [address] Test Date: 2021-07-06 Test Time: 11:35:57 Pat Name: MARY GARZA Department: Room: [facility] 1 Gender: F Trimmer Meat: EDMUND : 1985 Requested By: DE KALB ORGAN Order Number: [id number] Reading MD: Houston Agarwal Measurements Intervals [place] Rate: 84 P: 47 DE: 102 QRS: 62 QRSD: 70 T: 74 QT: 384 QTc: 457 Interpretive Statements SINUS RHYTHM NORMAL ECG Electronically Signed On 07-06-2021 17:55:48 CDT by Houston Agarwal
[2021-07-06 12:25] LABS: BASO % 0 % (0-3); EOS # 0.1 x10^3/uL (0.0-0.7); EOS % 0 % (0-3); HEMATOCRIT 28.1 % (36.0-47.0); HEMOGLOBIN 9.6 g/dL (12.0-15.5); LYMPH # 1.1 x10^3/uL (1.0-4.8); LYMPH % 6 % (24-48); MEAN CORPUSCULAR HEMOGLOBIN 32 pg (25-35); MEAN CORPUSCULAR HGB CONC 34 g/dL (31-37); MEAN CORPUSCULAR VOLUME 94 fL (79-100); MONO # 0.3 x10^3/uL (0.0-1.1); MONO % 2 % (0-9); NEUT # 18.2 x10^3/uL (1.8-7.7); NEUT % 93 % (31-73); PLATELET COUNT 98 x10^3/uL (140-400); RED BLOOD COUNT 3.01 x10^6/uL (3.50-5.40); RED CELL DISTRIBUTION WIDTH 12.7 % (11.5-14.5); WHITE BLOOD COUNT 19.7 x10^3/uL (4.0-11.0)
[2021-07-06 12:36] LABS: PROTHROMBIN TIME PATIENT 14.1 SEC (11.7-14.0)
[2021-07-06 12:45] LABS: ALBUMIN 2.9 g/dL (3.4-5.0); CALCIUM 8.6 mg/dL (8.5-10.1); CREATININE 0.6 mg/dL (0.6-1.0); DIRECT BILIRUBIN 0.2 mg/dL (0.0-0.2); GFR 113.1; MAGNESIUM 1.9 mg/dL (1.8-2.4); PHOSPHORUS 3.5 mg/dL (2.6-4.7); POTASSIUM 4.2 mmol/L (3.5-5.1); TOTAL BILIRUBIN 0.6 mg/dL (0.2-1.0); TOTAL PROTEIN 6.3 g/dL (6.4-8.2)
[2021-07-06] MEDS ORDERED: IODIXANOL 320 MG/ML 100 ML VIAL. ONE (13:13)
[2021-07-06 14:17] LABS: BASE EXCESS ABG -2 mmol/L (-3-3); HCO3 ABG 22 mmol/L (21-28); PCO2 ABG 36 mmHg (35-46); PO2 ABG 436 mmHg (85-108); SAT O2 ABG 99 % (92-99)
[2021-07-06 14:19] LABS: FIO2 ABG 100
[2021-07-06] MEDS ORDERED: NITROGLYCERIN 200 MCG/2 ML SYRINGE FOR CATH/VASC LAB. ONE (15:12)
[2021-07-06] MEDS ORDERED: HEPARIN for IV BOLUS 10,000 UNIT/10 ML VIAL. ONE (15:12)
[2021-07-06] MEDS ORDERED: VERAPAMIL 5 MG/2 ML VIAL. ONE (15:12)
--- NOTE | 2021-07-06 19:58 | RAD ---
EXAMINATION: Chest radiograph. VIEWS: Single AP view of chest COMPARISON: 06/27/2021 INDICATION:35 years, Female, organ donation. FINDINGS: Endotracheal tube terminates 7 cm above the nav. Enteric tube and right IJ central line are in sta ble position. Stable cardiomediastinal silhouette. Patchy midlung opacities are slightly decreased fr om prior. No pneumothorax or pleural effusion. No acute osseous process. IMPRESSION: 1. Stable support tubes and lines. 2. Decreased ill-defined midline opacities. Electronically signed by: Robbin Seaman DO (07/06/2021 7:55 PM) [facility]
[2021-07-06] MEDS ORDERED: FLUCONAZOLE 400MG/200ML PREMIX 200 ML IV ONE (20:00)
[2021-07-06] MEDS: ENOXAPARIN 30 MG/0.3 ML SYRINGE. SQ SCH (20:56)
[2021-07-06 22:55] LABS: ALBUMIN 2.8 g/dL (3.4-5.0); CALCIUM 8.1 mg/dL (8.5-10.1); CREATININE 0.5 mg/dL (0.6-1.0); DIRECT BILIRUBIN 0.3 mg/dL (0.0-0.2); GFR 139.6; MAGNESIUM 1.8 mg/dL (1.8-2.4); PHOSPHORUS 3.6 mg/dL (2.6-4.7); POTASSIUM 3.8 mmol/L (3.5-5.1); TOTAL BILIRUBIN 0.7 mg/dL (0.2-1.0); TOTAL PROTEIN 5.6 g/dL (6.4-8.2)
[2021-07-07 01:43] LABS: BASO % 0 % (0-3); EOS # 0.1 x10^3/uL (0.0-0.7); EOS % 1 % (0-3); HEMATOCRIT 27.6 % (36.0-47.0); HEMOGLOBIN 9.1 g/dL (12.0-15.5); LYMPH # 1.1 x10^3/uL (1.0-4.8); LYMPH % 5 % (24-48); MEAN CORPUSCULAR HEMOGLOBIN 31 pg (25-35); MEAN CORPUSCULAR HGB CONC 33 g/dL (31-37); MEAN CORPUSCULAR VOLUME 93 fL (79-100); MONO # 0.4 x10^3/uL (0.0-1.1); MONO % 2 % (0-9); NEUT # 17.9 x10^3/uL (1.8-7.7); NEUT % 92 % (31-73); PLATELET COUNT 96 x10^3/uL (140-400); RED BLOOD COUNT 2.96 x10^6/uL (3.50-5.40); RED CELL DISTRIBUTION WIDTH 12.6 % (11.5-14.5); WHITE BLOOD COUNT 19.5 x10^3/uL (4.0-11.0)
[2021-07-07 01:44] LABS: BASO % 0 % (0-3); EOS # 0.1 x10^3/uL (0.0-0.7); EOS % 1 % (0-3); HEMATOCRIT 26.1 % (36.0-47.0); HEMOGLOBIN 8.7 g/dL (12.0-15.5); LYMPH # 1.1 x10^3/uL (1.0-4.8); LYMPH % 7 % (24-48); MEAN CORPUSCULAR HEMOGLOBIN 31 pg (25-35); MEAN CORPUSCULAR HGB CONC 33 g/dL (31-37); MEAN CORPUSCULAR VOLUME 94 fL (79-100); MONO # 0.4 x10^3/uL (0.0-1.1); MONO % 3 % (0-9); NEUT # 13.7 x10^3/uL (1.8-7.7); NEUT % 89 % (31-73); PLATELET COUNT 90 x10^3/uL (140-400); RED BLOOD COUNT 2.78 x10^6/uL (3.50-5.40); WHITE BLOOD COUNT 15.4 x10^3/uL (4.0-11.0)
[2021-07-07 02:04] LABS: ALBUMIN 2.5 g/dL (3.4-5.0); CALCIUM 7.8 mg/dL (8.5-10.1); CREATININE 0.5 mg/dL (0.6-1.0); DIRECT BILIRUBIN 0.3 mg/dL (0.0-0.2); GFR 139.6; MAGNESIUM 1.7 mg/dL (1.8-2.4); PHOSPHORUS 3.4 mg/dL (2.6-4.7); POTASSIUM 3.7 mmol/L (3.5-5.1); TOTAL BILIRUBIN 0.7 mg/dL (0.2-1.0); TOTAL PROTEIN 5.9 g/dL (6.4-8.2)
[2021-07-07 02:11] LABS: PROTHROMBIN TIME PATIENT 14.8 SEC (11.7-14.0)
[2021-07-07 02:14] LABS: BASE EXCESS ABG -1 mmol/L (-3-3); HCO3 ABG 23 mmol/L (21-28); PCO2 ABG 37 mmHg (35-46); PO2 ABG > 503 mmHg (85-108); SAT O2 ABG 100 % (92-99)
[2021-07-07] MEDS: IV NORMAL SALINE 1000ML BAG 1,000 ML IV SCH (02:14)
[2021-07-07 02:15] LABS: BASE EXCESS ABG -2 mmol/L (-3-3); HCO3 ABG 22 mmol/L (21-28); PCO2 ABG 33 mmHg (35-46); PO2 ABG 299 mmHg (85-108)
[2021-07-07 02:31] LABS: FIO2 ABG 100
[2021-07-07 02:32] LABS: SAT O2 ABG 100 % (92-99)
[2021-07-07 03:35] LABS: PROTHROMBIN TIME PATIENT 14.2 SEC (11.7-14.0)
[2021-07-07 06:35] LABS: BASO % 0 % (0-3); EOS # 0.2 x10^3/uL (0.0-0.7); EOS % 2 % (0-3); HEMATOCRIT 24.9 % (36.0-47.0); HEMOGLOBIN 8.4 g/dL (12.0-15.5); LYMPH # 1.2 x10^3/uL (1.0-4.8); LYMPH % 8 % (24-48); MEAN CORPUSCULAR HEMOGLOBIN 32 pg (25-35); MEAN CORPUSCULAR HGB CONC 34 g/dL (31-37); MEAN CORPUSCULAR VOLUME 94 fL (79-100); MONO # 0.5 x10^3/uL (0.0-1.1); MONO % 3 % (0-9); NEUT # 12.9 x10^3/uL (1.8-7.7); NEUT % 87 % (31-73); PLATELET COUNT 87 x10^3/uL (140-400); RED BLOOD COUNT 2.65 x10^6/uL (3.50-5.40); RED CELL DISTRIBUTION WIDTH 12.9 % (11.5-14.5); WHITE BLOOD COUNT 14.8 x10^3/uL (4.0-11.0)
[2021-07-07 06:47] LABS: ALBUMIN 2.4 g/dL (3.4-5.0); CALCIUM 8.1 mg/dL (8.5-10.1); CREATININE 0.5 mg/dL (0.6-1.0); DIRECT BILIRUBIN 0.5 mg/dL (0.0-0.2); GFR 139.6; MAGNESIUM 1.7 mg/dL (1.8-2.4); PHOSPHORUS 3.5 mg/dL (2.6-4.7); POTASSIUM 3.4 mmol/L (3.5-5.1); TOTAL PROTEIN 5.8 g/dL (6.4-8.2)
[2021-07-07 06:55] LABS: PROTHROMBIN TIME PATIENT 14.5 SEC (11.7-14.0)
--- NOTE | 2021-07-07 10:20 | RAD ---
XR CHEST 1V INDICATION: routine MTN order . COMPARISON STUDY: 07/06/2021. FINDINGS: Life Support Devices: Endotracheal tube, enteric tube, right IJ central venous catheter in place. Lungs: Normal lung volume. Stable mild bilateral opacities. Pleura: No pleural effusion or pneumothorax. Heart and Mediastinum: Stable cardiomediastinal silhouette and great vessels. Bones and Soft Tissues: Stable regional skeleton and soft tissues. IMPRESSION: Stable mild bilateral opacities. Electronically signed by: Bryant Robertson MD (07/07/2021 10:18 AM) [id number]
[2021-07-07 12:08] LABS: BASO % 0 % (0-3); EOS # 0.4 x10^3/uL (0.0-0.7); EOS % 3 % (0-3); HEMATOCRIT 24.3 % (36.0-47.0); HEMOGLOBIN 8.1 g/dL (12.0-15.5); LYMPH # 1.1 x10^3/uL (1.0-4.8); LYMPH % 7 % (24-48); MEAN CORPUSCULAR HEMOGLOBIN 31 pg (25-35); MEAN CORPUSCULAR HGB CONC 33 g/dL (31-37); MEAN CORPUSCULAR VOLUME 94 fL (79-100); MONO # 0.5 x10^3/uL (0.0-1.1); MONO % 4 % (0-9); NEUT # 12.5 x10^3/uL (1.8-7.7); NEUT % 86 % (31-73); PLATELET COUNT 80 x10^3/uL (140-400); RED BLOOD COUNT 2.59 x10^6/uL (3.50-5.40); RED CELL DISTRIBUTION WIDTH 12.7 % (11.5-14.5); WHITE BLOOD COUNT 14.5 x10^3/uL (4.0-11.0)
[2021-07-07 12:18] LABS: PROTHROMBIN TIME PATIENT 14.8 SEC (11.7-14.0)
[2021-07-07 12:30] LABS: ALBUMIN 2.2 g/dL (3.4-5.0); CREATININE 0.5 mg/dL (0.6-1.0); DIRECT BILIRUBIN 0.8 mg/dL (0.0-0.2); GFR 139.6; MAGNESIUM 1.7 mg/dL (1.8-2.4); PHOSPHORUS 3.8 mg/dL (2.6-4.7); POTASSIUM 3.3 mmol/L (3.5-5.1); TOTAL BILIRUBIN 1.4 mg/dL (0.2-1.0); TOTAL PROTEIN 5.7 g/dL (6.4-8.2)
[2021-07-07 13:03] LABS: BACTERIA,URINE 0 /HPF (0-FEW); RBC,URINE 0 /HPF (0-2); WBC,URINE 0 /HPF (0-4)
[2021-07-07] MEDS ORDERED: ALBUMIN HUMAN 25% 100 ML IV ONE (13:15)
[2021-07-07] MEDS ORDERED: ROCURONIUM 100 MG/10 ML VIAL. ONE (15:06)
[2021-07-07] MEDS ORDERED: ALBUMIN HUMAN 5% 500 ML IV ONE (15:25)
[2021-07-07] MEDS ORDERED: PHENYLEPHRINE in 0.9% NACL PF 1 MG/10 ML SYRINGE. IV ONE (15:47)
[2021-07-07] MEDS ORDERED: PHENYLEPHRINE 10 MG/ML VIAL. ONE (15:47)
--- NOTE | 2021-07-08 08:33 | CARD ---
MR#: [id number] Date of Study: 07/06/2021 Ordering Physician: YULY VAUGHN, Referring Physician: YULY VAUGHN, Tech: RT Jacque(R) APPROVED REPORT Technologist: RT Jacque(R) Nurse: Nini Bernard RN Procedure(s) performed: fl time: 2.2 min dose: 9 gycm2 contrast: 34 ml LHC, Coronary angiography CASE TECHNIQUE During this case, Fluoroscopy and low osmolar contrast were used for imaging. Specimen(s) Removed: N/ A Estimated Blood loss: 5 cc's. PROCEDURE NARRATIVE Reason for procedure: Organ donation Procedure details: A 4 American sheath was placed in the right common femoral artery via fluoroscopic guidance. Diagnosti c angiography was then performed with a 4 American JL 4 and JR4 catheters. Left ventricular end-diasto lic pressure was obtained with a 4 American JR4 catheter and a pullback was performed. At case complet ion catheters and sheath were removed and hemostasis was achieved via manual compression. No acute c omplications. Findings: Aorta 90/50 LVEDP 10 mmHg No LV to aortic pullback gradient Coronary angiography: Left main is a moderate to large caliber vessel with normal angiographic appearance LAD is a moderate caliber vessel with normal angiographic appearance Left circumflex is a moderate caliber nondominant vessel with normal angiographic appearance RCA is a moderate to large caliber vessel with normal angiographic appearance Conclusion 1. Normal left-sided filling pressures 2. Normal angiographic appearance of the coronary arteries Signed by : Edil Kaye, Electronically Approved : 07/08/2021 08:33:23
== END 2021-07-07 15:00 | DRG 264 ==
LOC: OPS 10:53 → 1 WEST ICU 10:53 → EDSTATUS 17:01 → 1 WEST ICU 17:03
PROC: 5A1945Z Respiratory Ventilation, 24-96 Consecutive Hours (ICD-10-PCS; principal; 2021-07-04)
PROC: 4A023N7 Measurement of Cardiac Sampling and Pressure, Left Heart, Percutaneous Approach (ICD-10-PCS; 2021-07-04)
PROC: 0BH17EZ Insertion of Endotracheal Airway into Trachea, Via Natural or Artificial Opening (ICD-10-PCS; 2021-07-04)
PROC: 02HV33Z Insertion of Infusion Device into Superior Vena Cava, Percutaneous Approach (ICD-10-PCS; 2021-07-04)
PROC: B2111ZZ Fluoroscopy of Multiple Coronary Arteries using Low Osmolar Contrast (ICD-10-PCS; 2021-07-04)
PROC: 0FB20ZX Excision of Left Lobe Liver, Open Approach, Diagnostic (ICD-10-PCS; 2021-07-07)
PROC: 0BTM0ZZ Resection of Bilateral Lungs, Open Approach (ICD-10-PCS; 2021-07-07)
PROC: 0FT00ZZ Resection of Liver, Open Approach (ICD-10-PCS; 2021-07-07)
PROC: 0FTG0ZZ Resection of Pancreas, Open Approach (ICD-10-PCS; 2021-07-07)
PROC: 0TT20ZZ Resection of Bilateral Kidneys, Open Approach (ICD-10-PCS; 2021-07-07)
DX: R07.89 Other chest pain (principal); Z20.822 Contact with and (suspected) exposure to COVID-19; I08.1 Rheumatic disorders of both mitral and tricuspid valves
CPT/HCPCS: 36415; 36600; 71045; 80048; 80076; 81001; 82040; 82150; 82247; 82248; 82310; 82550; 82805; 82962; 82977; 83036; 83605; 83615; 83690; 83735; 84075; 84100; 84155; 84450; 84460; 84484; 85007; 85025; 85384; 85610; 85730; 86850; 86900; 86901; 86920; 87040; 87070; 87086; 87102; 87106; 87252; 93005; 93306; 93458; 94003; 94640; A4222; A4223; A4322; A4930; A6255; C1894; J0610; J0696; J1450; J1650; J2370; J2597; J3475; J3480; J3490; J7030; J7042; J7050; J7060; J7120; P9041; P9045; P9046; U0003; C8929; G0378